=== PATIENT | female | born 1935 | race African-American/Black ===

== ENCOUNTER 2018-12-18 15:25 | Inpatient (IN) ==
[2018-12-18] MEDS ORDERED: LASIX IV ONE ×2 (16:45→19:26)
[2018-12-18 18:09] LABS: ALLEN TEST YES; BE 1.3 mmoll (-3.0-3.0); BLOOD TYPE ARTERIAL; HCO3-(ACT) 25.8 mmoll (20.0-26.0); METHB 0.6 % (0.0-1.5); MODALITY ROOM AIR; O2(CT) 15.9 mL/dL (15.0-23.0); PCO2(98.6) 35 mmHg (35-45); PO2(98.6) 67 mmHg (60-100); SAMPLE BLOOD; SAO2 95.7 % (95.0-100.0); THB 12.1 g/dL (11.5-17.4); pH(98.6) 7.46 (7.35-7.45)
[2018-12-18 18:26] LABS: BASO# 0.02 X1000 (0.0-0.2); BASO% 0.4 % (0.0-0.8); EOS# 0.11 X1000 (0.0-0.7); HEMATOCRIT 36.9 % (37.0-47.0); HEMOGLOBIN 12.3 g/dL (12.0-16.0); LYMPH# 1.25 X1000 (1.2-3.4); LYMPH% 22.3 % (20.5-51.1); MCHC 33.3 g/dL (33-37); MCV 92.9 FL (81-99); MONO# 0.59 X1000 (0.11-0.59); MONO% 10.5 % (1.7-9.3); NEUT# 3.64 X1000 (1.4-6.5); NEUT% 64.8 % (42.2-75.2); PLT 204 X1000 (130-400); RBC 3.97 XMIL (4.2-5.4); RDW 14.7 % (11.5-14.5); WBC 5.61 X1000 (4.8-10.8)
--- NOTE | 2018-12-18 18:50 | Diag Imaging Result Doc PS360 ---
CHEST-2 VIEWS - 12/18/2018 INDICATION: SOB COMPARISON: 10/03/2017 FINDINGS: There is significant cardiomegaly. There is central pulmonary vascular congestion. No definite edema. There is some linear atelectasis or scarring in the left upper lobe. No pleural effusion. IMPRESSION: Cardiomegaly and pulmonary vascular congestion. Persistent linear atelectasis in the left upper lobe. Electronically signed by Bob Figueroa 12/18/2018 6:48 PM
[2018-12-18 19:08] LABS: ALB/GLOB RATIO 0.9; ALBUMIN 3.4 g/dL (3.5-5.0); CALCIUM 10.6 mg/dL (8.8-10.2); CREATININE 1.3 mg/dL (0.5-0.9); POTASSIUM 4.1 mmol/L (3.5-5.1); TOTAL BILIRUBIN 0.56 mg/dL (0.20-1.00); TOTAL PROTEIN 7.2 g/dL (6.3-8.3)
[2018-12-18] MEDS ORDERED: ULTRAM PO PRN (19:25)
--- NOTE | 2018-12-18 22:40 | HISTORY AND PHYSICAL ---
SUBJECTIVE: Dyspnea on exertion, PND, orthopnea, cardiac asthma, swelling of feet. HISTORY OF PRESENT ILLNESS: She is an 83-year-old female who was evaluated in my office last week, basically with the above symptoms. The patient has significant systolic murmur in the aortic area and mitral area. Chest x-ray showed cardiomegaly. She has an elevated JVD. Send an echo and started on Dyazide. Obviously patient fails to follow up and came in my office today with worsening of symptoms. The echocardiography showed mild concentric LV hypertrophy, LV function 60%, severe enlargement of left atrial cavity around 62. She has moderate eccentric mitral regurgitation. Estimated regurgitant orifice 0.25. She also has mild aortic stenosis with mild aortic insufficiency. Estimated aortic valve area 1.8 square cm. Severe pulmonary hypertension with estimated pressure 90 mm. In my office today, she has elevated JVD and some wheezing noted. She also complains of left leg pain and changing the color on the left 3rd toe. Pulses are palpable. I spoke to the family at bedside. The patient has been admitted to the hospital with congestive heart failure and needs evaluation of these 2 murmurs with severe pulmonary hypertension. Dr. Maynard has been consulted. We will discuss with him. In the meantime, we will give IV Lasix and followup. PAST MEDICAL HISTORY: Type 2 diabetes, hypertension, obesity, osteoporosis, paroxysmal atrial fibrillation, acid reflux disease, rheumatoid arthritis, lumbar spinal stenosis, vitamin D deficiency. PAST SURGICAL HISTORY: Right cataract surgery, bilateral knee replacement, L-spine surgery, history of Thakkar's palsy, colonoscopy 2015 was negative. L3-L4 laminectomy, bilateral olecranon nodule removal by Dr. Schulte in 2013. MEDICINES: In my office, aspirin, amiodarone 200 daily 8, atenolol 50 daily, Dyazide 1 tablet daily, Eliquis 5 mg p.o. b.i.d., Nexium 40 mg daily, Plaquenil 200 mg daily, lisinopril 10 daily, Protonix 40 daily, vitamin D 50,000 units once a week, Zanaflex 4 mg at bedtime. ALLERGIES: Sulfa and guaifenesin. SOCIAL HISTORY: She is , 9 children, 8 living. No smoking. No alcohol. No drug abuse. FAMILY HISTORY: Father at the age of 70 from heart attack. Mom at 89 from stroke. HEALTH MAINTENANCE: Flu vaccine 2018, pneumococcal vaccine 09/20/2017. Mammography April 2018. Last physical April 2018, colonoscopy July 2014. Eye exam Dr. Conteh. REVIEW OF SYSTEMS: HEENT: No headache and no vision problem. No earache. No sore throat. Neck: No goiter. No lymphadenopathy. No bruit. Cardiopulmonary: No chest pain, shortness of breath, cough and wheezing. GI: No nausea, vomiting, abdominal pain. : No history of hesitancy, dysuria, frequency, swelling of legs, chronic back pain. Arthritic changes from rheumatoid under the care of Dr. Paula. Neurologic: No focal symptoms or weakness. Extremities: Left leg pain and discoloration on the 3rd toe. PHYSICAL EXAMINATION: Is 98.4 degrees 1, pulse is 54, blood pressure 160/68, 97% on room air, 4 feet 2, 184 pounds. HEENT: Atraumatic, normocephalic. Pupils equal, reactive to light. Cataracts present on the left side. TMs are normal and JVD is elevated. CHEST: Is wheezing. HEART: Distant heart sounds. Systolic murmur in the aortic area as well as in the mitral area. Exam is suboptimal because of huge breasts. ABDOMEN: Belly is soft, obese, nontender. EXTREMITIES: 1+ pedal edema. Pulses are palpable. Third toe slightly discolored. NEUROLOGIC: No obvious focal deficits. INVESTIGATIONS: CBC: White cell count 5.6, hematocrit 36.9, platelets 204,000. ABG: pH is 7.46, pCO2 35, PO2 67 on room air. SMA-7. BUN 30, creatinine 1.3, calcium 10.6, proBNP 4000. Chest x-ray: Cardiomegaly increased pulmonary vasculature, scarring in the left upper lobe. ASSESSMENT AND PLAN: 1. An 83-year-old female admitted to the hospital with diastolic heart failure with underlying aortic stenosis and moderate severe mitral regurgitation associated with pulmonary hypertension and needs a probably VEL, further opinion and will get an EKG and Dr. Maynard consult in the morning. 2. PAF on Cordarone 200 mg daily along with Eliquis 5 mg p.o. b.i.d. 3. We will give IV Lasix 1 time daily. Secondary pulmonary hypertension and also check the D- dimer. We will also get a CT pulmonary angiogram if is positive. 4. Left leg pain discoloration of 3rd toe. Check the ankle brachial index. 5. Rheumatoid arthritis on Plaquenil. 6. Acid reflux disease on Prilosec. 7. Chronic back pain and tramadol and Zanaflex and reconcile home medications. 8. No need for deep vein thrombosis prophylaxis since patient is on Eliquis and we will follow up on the pending labs. cc: Marcos Kendrick MD
[2018-12-18] MEDS: NEURONTIN PO SCH (23:24)
[2018-12-18] MEDS: ELIQUIS PO SCH (23:24)
[2018-12-18] MEDS: ZANAFLEX PO SCH (23:24)
--- NOTE | 2018-12-19 07:11 | EKG Report ---
Test Performed on : 12/19/2018 06:53:05 AM Test Reason : cp Blood Pressure : / mmHG Vent. Rate : 046 BPM Atrial Rate : 046 BPM P-R Int : 214 ms QRS Dur : 116 ms QT Int : 568 ms P-R-T Axes : 063 -34 012 degrees QTc Int : 497 ms Sinus bradycardia. with 1st degree AV block. Left axis deviation Incomplete left bundle branch block Prolonged QT Abnormal ECG When compared with ECG of 07-JAN-2011 08:27, premature ventricular complexes. are no longer present Incomplete left bundle branch block is now present QT has lengthened Confirmed by Dante AARON, Andrew Aguirre ([id number]) on 12/19/2018 10:02:06 AM
[2018-12-19] MEDS: DYAZIDE PO SCH (08:41)
[2018-12-19] MEDS: PRINIVIL PO SCH (08:41)
[2018-12-19] MEDS: PLAQUENIL PO SCH (08:41)
[2018-12-19] MEDS: ELIQUIS PO SCH (08:41)
[2018-12-19] MEDS: CENTRUM SILVER PO SCH (08:41)
[2018-12-19] MEDS: PRILOSEC PO SCH (08:42)
[2018-12-19] MEDS: CORDARONE PO SCH (08:42)
[2018-12-19] MEDS: LASIX IV SCH (08:42)
[2018-12-19] MEDS ORDERED: TENORMIN PO SCH (09:00)
--- NOTE | 2018-12-19 09:11 | PROGRESS NOTE ---
DATE: 12/19/2018 SUBJECTIVE: The patient is a little better. Wheezing. IV Lasix was given. Left leg pain is better. Doppler was done. Waiting for AMARILIS. OBJECTIVE: Vital Signs: Temperature is 98 degrees, pulse 70, and blood pressure is stable. HEENT: Within normal limits. Lungs: Scattered wheezing. Heart: Sounds are very distant with systolic murmur noted and huge breasts. Suboptimal exam. No peripheral edema. LABORATORY: EKG sinus bradycardia. Nothing acute. Creatinine 1.3. ProBNP 4000. ASSESSMENT AND PLAN: 1. Shortness of breath due to diastolic dysfunction due to mild aortic stenosis and moderate MR with severe pulmonary hypertension. 2. Check the D-dimer and PAF in sinus on Cordarone and Eliquis. 3. Chronic pain in the legs on Neurontin. 4. Rheumatoid arthritis on Plaquenil. Cardiology consult for further opinion based on that. Further recommendations will be followed with family on the long run and living will was discussed. LEVEL OF DOCUMENTATION: 25 minutes. cc: Marcos Kendrick MD
--- NOTE | 2018-12-19 11:52 | CARDIOLOGY CONSULTATION ---
DATE: 12/19/2018 Cardiology was consulted for cardiac evaluation, transesophageal echocardiogram, given severe pulmonary arterial hypertension, mitral regurgitation, and aortic stenosis. An 83-year-old lady was evaluated by Dr. Kendrick in the office. As far as symptoms are concerned, she comes with complaints of having increasing shortness of breath. Denies chest pain. Exercise capacity is limited. There is no orthopnea. Her echocardiogram in the past revealed aortic stenosis with moderate eccentric mitral regurgitation and severe pulmonary arterial hypertension with a pressure of 90 mmHg. The aortic valve area was 1.8 cm2. She also has history of heart failure. There is no history of palpitations at the present time. There is no dizziness or syncope. PAST MEDICAL HISTORY: 1. Aortic stenosis. 2. By recent echocardiogram, moderate mitral regurgitation, severe pulmonary arterial hypertension. 3. Hypertension. 4. History of heart failure. 5. Hypothyroidism. 6. Paroxysmal atrial fibrillation, currently on amiodarone and in sinus rhythm. 7. Anticoagulation therapy. 8. Rheumatoid arthritis. 9. Lumbar spinal stenosis. 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 PAST SURGICAL HISTORY: Include: 1. Right cataract surgery. 2. Bilateral knee replacement. 3. Left spine surgery, . 4. Colonoscopy 2014 was negative. 5. L3-L4 laminectomy in the past. 6. Bilateral olecranon nodule surgery, 2013. HOME MEDICATIONS: Include amiodarone 200 mg a day. Atenolol 50 mg a day. Dyazide 1 tablet a day. Eliquis 5 mg p.o. b.i.d. Nexium. Plaquenil 200 mg a day. Lisinopril 10. Protonix 40. Multivitamins. Vitamin D. Zanaflex. ALLERGIES: Allergic to sulfonamides and guaifenesin. She is . Nine children, 8 living. HEALTH MAINTENANCE: Flu vaccine, 2018. Pneumococcal vaccine 09/20/2017. Mammogram 2018. REVIEW OF SYSTEMS: Gastrointestinal System: there is no history of nausea, vomiting, or diarrhea. There is no history of hematemesis or melena. Central nervous system: No focal weakness to suggest a CVA or TIA. Genitourinary System: There is no dysuria or hematuria. PHYSICAL EXAMINATION: Blood pressure when she was admitted was 160/68, currently blood pressure 142/52 jugular venous pressure was normal. First and second heart sounds were heard. There was ejection systolic murmur and pansystolic murmur as well. Respiratory System: A few scattered inspiratory wheezes. Abdomen was soft, nontender. There was no guarding or rigidity. Bowel sounds were heard. Central Nervous System: Alert and oriented. Was moving all 4 extremities. Examination of extremities revealed trace edema. DATA: Electrocardiogram revealed sinus bradycardia, heart rate of 46 beats per minute. ASSESSMENT AND PLAN: 1. Ms. Alia Longoria 83-year-old, lady who has paroxysmal atrial fibrillation, now in sinus rhythm; hypertension, blood pressures have been under control; has aortic stenosis which is mild by echocardiogram associated with moderate eccentric mitral regurgitation and severe pulmonary arterial hypertension. She is admitted with increasing shortness of breath and has had paroxysmal nocturnal dyspnea as well. She was given diuretics; since then, she has improved. Given her symptoms and valvular problems as listed above, we will plan for: 1) An echocardiogram to reassess cardiac and valvular function. Today her last ejection fraction was normal. 2) We will plan for a transesophageal echocardiogram in the morning to evaluate the aortic stenosis as well as the extent of the mitral regurgitation. 2. Hypertension. Blood pressures are under control. She was significantly bradycardic. I will decrease the atenolol to 25 mg a day. 3. Paroxysmal atrial fibrillation. She is on amiodarone 200 mg a day. She is in sinus rhythm. I have not made any changes. Anticoagulation therapy for stroke prophylaxis, she is on Eliquis. We will hold the Eliquis prior to procedure and restart after procedure. 4. She has rheumatoid arthritis and is on Plaquenil. I have not made any changes. I had a detailed discussion with the patient and her daughter. She would need to undergo right and left heart cardiac catheterization following a transesophageal echocardiogram. Patient is willing to undergo the procedures as well. We will make further recommendations after transesophageal echocardiogram. Thank you for the consult. We will follow hospital course. cc: MD Marcos Dixon MD MTDD
--- NOTE | 2018-12-19 15:21 | VASCULAR LAB ---
PROCEDURE NAME: Arterial Bilateral Legs - 12/18/2018 REQUESTING PHYSICIAN: Dr. Kendrick. [employer] PROGRAM DIRECTOR: Deanna. INDICATIONS: Peripheral vascular disease. SUMMARY: Segmental pressures are as follows: Right brachial 191, left 188; right proximal thigh 226, left 250; right distal thigh 217, left 223; right popliteal 220, left 215; right dorsalis pedis 179, left 198; right posterior tibial 191, left 184; right great toe 131, left 141; right AMARILIS 1.00, left 1.04; right TBI 0.69, left 0.74. Waveform analysis: Waveforms appear to be intact to the level of the toes bilaterally. INTERPRETATION: Likely [id number] distal peripheral small vessel disease to bilateral legs with the right being slightly worse than the left. The patient may benefit from CT angiography to delineate the anatomy better. cc: MD Marcos Tate MD
--- NOTE | 2018-12-19 16:51 | ECHO REPORT ---
ORDER DATE: 12/19/2018 INDICATION: Mitral regurgitation. Pulmonary hypertension. FINDINGS: 1. The right atrium appears normal in size. 2. Moderate tricuspid regurgitation. RV systolic pressure of 77 mmHg suggesting pulmonary hypertension. 3. Normal RV size and systolic function. 4. Mild pulmonic insufficiency. 5. Mild left atrial enlargement at 4.2 cm. 6. There is no mitral valve prolapse. There is moderate and possibly severe mitral regurgitation. This is a very eccentric jet. 7. Normal LV size, end-diastolic dimension of 4.7. Mild left ventricular hypertrophy with posterior and interventricular septal wall thickness of 1.2 cm each. Normal LV systolic function. The estimated EF is 60% to 65% with normal wall motion. 8. The aortic valve opens well. There is trace insufficiency no evidence of stenosis. 9. The aorta appears normal in visualized segments. 10. No pericardial effusion identified. cc: MD Layla Bauman PA Jagan Reddy, MD
[2018-12-19 19:21] LABS: URINE SOURCE CLEAN CATCH
[2018-12-19 19:28] LABS: BILIRUBIN URINE NEGATIVE (NEGATIVE); BLOOD URINE NEGATIVE (NEGATIVE); COLOR YELLOW; GLUCOSE URINE NEGATIVE (NEGATIVE); KETONE URINE NEGATIVE (NEGATIVE); LEUKOCYTES URINE NEGATIVE (NEGATIVE); NITRITE URINE NEGATIVE (NEGATIVE); PH URINE 6.5; PROTEIN URINE NEGATIVE (NEGATIVE); TURBIDITY URINE CLEAR (CLEAR); UROBILINOGEN URINE 2 mg/dL (NORMAL)
[2018-12-19 19:29] LABS: UR EPITHELIAL CELLS <10 /HPF (<10); URINE BACTERIA NEGATIVE /HPF; URINE RBC <10 /HPF (<10); URINE WBC <10 /HPF (<10)
[2018-12-19] MEDS: NEURONTIN PO SCH (20:33)
[2018-12-19] MEDS: ZANAFLEX PO SCH (20:33)
[2018-12-20 07:47] LABS: CALCIUM 10.1 mg/dL (8.8-10.2); CREATININE 1.2 mg/dL (0.5-0.9); MAGNESIUM 2.1 mg/dL (1.5-2.7); POTASSIUM 3.4 mmol/L (3.5-5.1)
[2018-12-20] MEDS ORDERED: TENORMIN PO SCH (09:00)
[2018-12-20] MEDS: PLAQUENIL PO SCH (09:01)
[2018-12-20] MEDS: CENTRUM SILVER PO SCH (09:01)
[2018-12-20] MEDS: LASIX IV SCH (09:01)
[2018-12-20] MEDS: PRILOSEC PO SCH (09:01)
[2018-12-20] MEDS: DYAZIDE PO SCH (09:01)
[2018-12-20] MEDS: CORDARONE PO SCH (09:01)
[2018-12-20] MEDS: PRINIVIL PO SCH (09:01)
[2018-12-20] MEDS ORDERED: DIPRIVAN 1% ONE (11:36)
[2018-12-20] MEDS ORDERED: XYLOCAINE-MPF 2% ONE (11:36)
[2018-12-20] MEDS ORDERED: SODIUM CHLORIDE 0.9% 10 ML ONE (11:48)
[2018-12-20] MEDS ORDERED: XYLOCAINE 2% VISCOUS ONE (11:48)
[2018-12-20] MEDS ORDERED: NS 1,000 ML ONE (12:06)
[2018-12-20] MEDS ORDERED: ANESTHESIA PB SET 88 IN 5742 ONE (12:06)
[2018-12-20] MEDS ORDERED: CLAVE TWINSITE 32 IN 11959 ONE (12:06)
[2018-12-20] MEDS ORDERED: EPHEDRINE ONE (12:52)
--- NOTE | 2018-12-20 13:27 | ECHO REPORT ---
ORDER DATE: 12/20/2018 PROCEDURE PERFORMED: Transesophageal echocardiogram to assess mitral regurgitation. DESCRIPTION OF PROCEDURE: Informed consent was obtained from the patient. Patient was brought to the cardiac catheterization laboratory. Cetacaine spray was used to anesthetize the oropharynx. Propofol was given intravenously to sedate the patient. Please see detailed anesthesia records. A transesophageal probe was easily passed into the esophagus. Ultrasound pictures were obtained. FINDINGS: 1. Normal left ventricular cavity size. Mild left ventricular hypertrophy. Estimated ejection fraction of 60%. 2. Aortic valve leaflets were mildly sclerosed, trileaflet. The aortic valve area by planimetry was 1.5 square cm. 3. Mitral valve leaflets were mildly thickened. There is mitral annular calcification. 4. Tricuspid valve was normal. 5. Pulmonic valve was normal. 6. Left atrium was mildly enlarged. Left atrial appendage was normal. Right atrium was normal. 7. Ascending aorta was normal. 8. Descending aorta had layered plaque. 9. Doppler studies revealed moderate tricuspid regurgitation with pulmonary artery systolic pressure of 61 mmHg. 10. There is mild pulmonary regurgitation. 11. There is mild restriction of the aortic valve leaflet motion with an aortic valve area of 1.5 square cm associated with mild eccentric aortic regurgitation. 12. There is severe mitral regurgitation. 13. There is no pericardial effusion. There is no obvious intracardiac mass or thrombus seen. cc: MD Layla Dixon PA Jagan Reddy, MD
[2018-12-20] MEDS ORDERED: LOVENOX SUBQ SCH (18:00)
[2018-12-20] MEDS ORDERED: KLOR-CON PO ONE (19:18)
--- NOTE | 2018-12-20 19:56 | PROGRESS NOTE ---
DATE: 12/20/2018 SUBJECTIVE: Patient is a lot better and waiting to undergo transesophageal echocardiogram. OBJECTIVE: Vital Signs: On exam, temperature is 97 degrees, pulse 49, blood pressure 123/51. HEENT: Exam within normal limits. Chest: Clear. Decreased wheezing. Heart: Sounds are regular. Abdomen: Belly is soft, obese, nontender. Extremities: Decreased edema. ASSESSMENT AND PLAN: 1. Diastolic heart failure with severe pulmonary hypertension. 2. Severe mitral regurgitation. 3. Left leg pain is improving. Followup studies as follows: AMARILIS right side 1.0, left side is 1.0, right TBI 0.69, left side is 0.74. Small vessel disease due to calcifications, and Dr. Maynard's consult appreciated. Patient was decreased with Tenormin 25 daily, intravenous Lasix, and hypokalemia. Replace the potassium. Then also, we discussed about the left heart catheterization based on the further recommendations. Will be followed. LEVEL OF DOCUMENTATION: 25 minutes. cc: Marcos Kendrick MD
[2018-12-20] MEDS: ZANAFLEX PO SCH (22:33)
[2018-12-20] MEDS: NEURONTIN PO SCH (22:33)
[2018-12-21 08:00] VITALS: BP 123/52
[2018-12-21] MEDS ORDERED: KLOR-CON PO ONE (09:42)
--- NOTE | 2018-12-23 19:49 | DISCHARGE SUMMARY ---
ADMISSION DATE: 12/18/2018 DISCHARGE DATE: 12/21/2018 DISCHARGING DIAGNOSES: Diastolic congestive heart failure due to severe mitral regurgitation and mild aortic stenosis with severe pulmonary hypertension. SECONDARY DIAGNOSES: 1. Type 2 diabetes. 2. Metabolic syndrome. 3. Hypertension. 4. Obesity. 5. Osteoporosis. 6. Paroxysmal atrial fibrillation. 7. Acid reflux disease, 8. Rheumatoid arthritis. 9. Lumbar spinal stenosis. 10. Vitamin D deficiency. CONSULTATIONS: Dr. Maynard. PROCEDURES: Arterial flow studies for left leg pain. AMARILIS on the right side 1.0, left side is 1.0. TBI 0.69 on the right, left side is 0.74. Transesophageal echocardiography report: 1. Normal left ventricular cavity size. EF is 60%. Aortic leaflet sclerosed trileaflet. 2. Estimated aortic valve area 1.5 square centimeters. 3. Mild mitral annular calcification. 4. Left atrium was mildly enlarged. 5. Severe pulmonary hypertension 61. 6. Mild aortic regurgitation. 7. Severe MR noted. BRIEF HISTORY: Please see the H and P that was done on 12/18/2018. In brief, she is an 83-year- old female admitted to the hospital with cardiac asthma, wheezing, shortness of breath, PND, orthopnea, and swelling of feet. She was on Dyazide. She has also history of PAF. She complains of left leg pain. HOSPITAL COURSE: She has elevated proBNP and further studies reveal severe MR, enlargement of left atrial cavity. The patient was transferred to [facility] for right and left heart cath. In the meantime, Dr. Maynard recommended to cut down the metoprolol since she is bradycardic. Paroxysmal atrial fibrillation on Cordarone 200 daily along with Eliquis 5 mg p.o. b.i.d. Symptoms are improved with IV Lasix. She also has secondary pulmonary hypertension. Upon further workup, D-dimer was negative. She is already on Eliquis and is low likelihood for having pulmonary embolism. She is complaining of left leg pain and discoloration of 3rd toe for which arterial flow studies were done, and at this time there was no significant PAD noted. Chronic rheumatoid arthritis on Plaquenil. Acid reflux disease on Prilosec. The patient was discharged to [facility] for right and left heart cath. Symptoms are much improved. LABORATORIES: CBC: White cell count 5.6, hematocrit 36, platelets 204,000. ABG on room air: pH is 7.46, pCO2 of 35, pO2 of 67. SMA 7: Sodium 142, potassium 4.1, BUN 32, creatinine 1.2, calcium 10.1, magnesium 2.1. Cardiac enzymes were negative. ProBNP 3000. STUDIES: Chest x-ray: Marked cardiomegaly. DISCHARGING INSTRUCTIONS: Cordarone 200 daily, Eliquis 5 mg p.o. b.i.d., gabapentin 300 daily, Plaquenil 200 daily, lisinopril 10 daily, multivitamin 1 tablet daily, Prilosec 20 daily, tramadol 50 t.i.d. as needed, Lasix 40 mg daily, atenolol 25 daily, Zanaflex 4 mg at bedtime. FOLLOWUP: Follow up from the [facility] after right and left heart cath. She also needs surveillance for Cordarone with liver function test, thyroid function test, and chest x-ray every 6 months. cc: MD Martin Amato MD
== END 2018-12-21 09:46 | disposition short-term general hospital (02) | DRG 292 ==
LOC: DIRADM → OBSVTOIN 15:25 → 3N 15:54
PROVIDERS: ADMIT Internal Medicine; ATTEND Internal Medicine
CPT/HCPCS: 71020; 71046; 80048; 80053; 81001; 82805; 83735; 83880; 84484; 85025; 93005; 93010; 93306; 93312; 93923; A9270; J1650; J1940; J7030

== ENCOUNTER 2019-03-11 11:00 | Inpatient (IN) ==
[2019-03-11] MEDS ORDERED: XYLOCAINE-MPF 1% INJ ONE (11:41)
--- NOTE | 2019-03-11 11:49 | PROVIDER DOCUMENTATION ---
HPI-General Adult - General Chief Complaint: Fall Stated Complaint: FALL Time Seen by Provider: 03/11/19 11:25 Source: patient Allergies/Adverse Reactions: Patient Allergies Allergy/AdvReac Type Severity Reaction Status Date / Time codeine Allergy ITCHING Verified 03/11/19 12:02 povidone-iodine Allergy ITCHING Verified 03/11/19 12:02 [From Betadine] soap [From Betadine] Allergy ITCHING Verified 03/11/19 12:02 Sulfa (Sulfonamide Allergy ITCHING Verified 03/11/19 12:02 Antibiotics) adhesive tape AdvReac "pulls Verified 03/11/19 12:02 skin" if left on too long Home Medications: Home Medication List Medication Instructions Recorded Confirmed Last Taken Type Amiodarone [Cordarone] 200 mg PO DAILY 09/28/17 03/11/19 03/11/19 History Apixaban [Eliquis] 5 mg PO BID 09/28/17 03/11/19 03/11/19 History Gabapentin 300 mg PO HS 09/28/17 03/11/19 03/10/19 History Hydroxychloroquine Sulfate 200 mg PO DAILY 09/28/17 03/11/19 03/11/19 History Lisinopril 10 mg PO DAILY 09/28/17 03/11/19 03/11/19 History Tizanidine HCl [Zanaflex] 4 mg PO HS 09/28/17 03/11/19 03/10/19 History Atenolol 25 mg PO DAILY 12/18/18 03/11/19 03/11/19 History Potassium Chloride 2 tab PO DAILY 03/11/19 03/11/19 03/11/19 History Torsemide [Demadex] 1 tab PO BID 03/11/19 03/11/19 03/11/19 History - History of Present Illness -Gen Adult Nature of Presenting Problems: Pt. is 84 yof that presents with c/o a fall this morning and hitting her head. Pt. denies any LOC and states she is on blood thinners. Pt. reports her right foot gave out and she fell. Pt. reports a knot on her head and states her right lower leg hurts. She also reports a cut to the left lower leg. She denies any other complaints. Location of Pain/Injury: reports: head, lower extremity (Bilaterally). denies: none, face, mouth, neck, chest, upper extremity, hand(s), abdomen, back, pelvis, genitalia, feet, upper body, lower body, generalized, other Pain Radiation: reports: no radiation. denies: arm(s), back, buttocks, chest, epigastric, feet, groin, jaw, flank (L), legs (lower), LLQ, LUQ, neck, periumbilical, flank (R), RLQ, RUQ, shoulder(s), scapula, scrotal, sternal notch, suprapubic, legs (upper), urethral, vaginal, other Quality of Pain: reports: aching. denies: burning, pressure, throbbing Severity: reports: moderate. denies: mild, severe Onset/Duration: reports: abrupt, just prior to arrival Timing: reports: still present. denies: improving, intermittent, getting worse Context/Activities at Onset: reports: light activity, recent trauma history. denies: none, moderate activity, vigorous activity, recent emotional stress, recent physical stress, possible bad food, cold exposure, eating, out of country travel, rest, sleep, sexual activity, other Modifying Factors: improves with: immobilization. worse with: movement Associated Symptoms: reports: headaches, other (Lower extremity pain). denies: denies symptoms, anxiety, arm pain, back/neck pain, chest pain, constipation, cough, diaphoresis, diarrhea, dizziness, EENT symptoms, fatigue, fever/chills, genitourinary problems, heartburn, joint pain, loss of appetite, malaise, muscle aches, sinus congestion/drainage, nausea, rash, seizure, shortness of breath, sensory/motor loss, pain with inspiration, swelling/mass in abdomen, syncope, vomiting, weakness, trouble walking Similar Symptoms Previously?: No Recently seen or treated by another doctor?: No Review of Systems - Adult - REVIEW OF SYSTEMS - ADULT Constitutional: reports: no symptoms reported Eyes: reports: no symptoms reported Ears, Nose, Mouth & Throat: reports: no symptoms reported Cardiovascular: reports: no symptoms reported Respiratory: reports: no symptoms reported Gastrointestinal: reports: no symptoms reported Genitourinary: reports: no symptoms reported Musculoskeletal: reports: see HPI, joint pain (Right foot pain). denies: back pain, muscle aches, neck pain Integumentary: reports: see HPI, skin sores/ulcer (There is a previous hematoma to the left lower extremity that burst open when she fell today. It is large and there are large clots coming out of it. There is a foul odor to it also.), other (There is a 5 cm flap laceration to the left lower extremity.). denies: hair loss, itching, rash Neurological: reports: see HPI, headache/migraines. denies: numbness, seizure, tremors Psychiatric: reports: no symptoms reported Past History - Adult - PAST MEDICAL HISTORY-ADULT Review of Records: reports: Old Records Reviewed, Nursing Assessment Review, Medications Reviewed, Social history reviewed & non-contributory. Major Childhood Illnesses: reports: denies history Cardiovascular: reports: A-Fib, CAD, HTN Respiratory: reports: denies history Gastrointestinal: reports: denies history Obstetrical/Gynecological: reports: denies history Genitourinary: reports: denies history Musculoskeletal: reports: arthritis (RA) Neurological: reports: denies history Endocrine/Immune: reports: denies history Other Conditions: reports: denies history - IMMUNIZATION STATUS Childhood Immunizations: See Nurse Assessment Flu Vaccine: See Nurse Assessment - FAMILY HISTORY Family History: reviewed, not pertinent - SOCIAL HISTORY Smoking: denies Physical Exam-General - PHYSICAL EXAM-ADULT Initial Vital Signs Reviewed: Yes - CONSTITUTIONAL General Appearance: appears well, alert, no apparent distress. negative: anxious, obtunded, combative - EYES Eyes: PERRL/EOMI, pink conjunctivae - HEAD, EARS, NOSE, MOUTH & THROAT HENMT: moist mucous membranes. negative: angioedema, frontal tenderness, maxillary tenderness - NECK Neck: non-tender, full range of motion, supple, normal inspection - RESPIRATORY Respiratory: lungs clear, normal breath sounds - CARDIOVASCULAR Cardiovascular: normal peripheral pulses, regular rate, rhythm, no edema - GASTROINTESTINAL (ABDOMEN) Abdominal Exam: normal bowel sounds, non tender, soft - LYMPHATIC Lymphatic: no adenopathy - MUSCULOSKELETAL Back Exam: normal inspection. negative: no CVA tenderness, no vertebral tenderness Extremity: normal range of motion, tenderness (Right foot). negative: deformity, erythema, inflammation, swelling Peripheral Pulses: radial (R): 2+, radial (L): 2+ - SKIN Integumentary: abrasion(s) (There is an abrasion to the right forehead with underlying hematoma.), ecchymosis (There is a previous hematoma to the left lower extremity that burst open when she fell today. It is large and there are large clots coming out of it. There is a foul odor to it also.), laceration(s) (There is a 5 cm flap laceration to the left lower extremity.). negative: cyanosis, jaundice, pallor, swelling, warm - NEUROLOGIC Neurologic: grossly normal, no motor/sensory deficits. negative: aphasia, motor weakness, sensory deficit - PSYCHIATRIC Psych/Mental Status: normal mood/affect, normal thought content, normal thought process, oriented x 3. negative: anxious, paranoid, tearful Progress - PLAN OF CARE/RESULTS Progress/Plan/Lab Results: Vital Signs - 8 hr 03/11/19 11:19 Temperature 98.5 F Pulse Rate 51 L Respiratory Rate 16 Blood Pressure 105/74 O2 Sat by Pulse Oximetry 100 Orders Category Date Time Status Saline Loc NOW Care 03/11/19 11:40 Ordered lac [Laceration Set up] DIRECTED Care 03/11/19 11:42 Ordered CHEST-1 VIEW [RAD] Stat Exams 03/11/19 11:[address] HEAD/C-SPINE W/O CONTRAST [CT] Stat Exams 03/11/19 11:41 Ordered FOOT COMPLETE RIGHT [RAD] Stat Exams 03/11/19 11:43 Ordered LOWER LEG-LEFT [RAD] Stat Exams 03/11/19 11:42 Ordered LOWER LEG-RIGHT [RAD] Stat Exams 03/11/19 11:42 Ordered CBC WITH ELECTRONIC DIFF [HEME] Stat Lab 03/11/19 11:40 Uncollected COMPREHENSIVE METABOLIC PANEL [CHEM] Stat Lab 03/11/19 11:40 Uncollected PROTIME WITH INR [COAG] Stat Lab 03/11/19 11:41 Uncollected PTT [COAG] Stat Lab 03/11/19 11:41 Uncollected Lidocaine 1% Pf [Xylocaine-Mpf 1%] Med 03/11/19 11:41 Once 10 ml INJ NOW ONE EKG [EKG] Stat Ther 03/11/19 11:40 Ordered Laboratory Tests 03/11/19 03/11/19 03/11/19 11:56 11:56 11:56 WBC 9.71 RBC 3.85 L Hgb 11.8 L Hct 35.5 L MCV 92.2 MCH 30.6 MCHC 33.2 RDW Std Deviation 14.4 Plt Count 275 MPV 10.4 Immature Gran % (Auto) 0.4 Neut % (Auto) 69.4 Lymph % (Auto) 16.8 L [place] % (Auto) 11.7 H Eos % (Auto) 1.5 Baso % (Auto) 0.2 Immature Gran # (Auto) 0.04 Neut # (Auto) 6.73 H Lymph # (Auto) 1.63 [place] # (Auto) 1.14 H Eos # (Auto) 0.15 Baso # (Auto) 0.02 PT 19.7 H INR 1.63 PTT (Actin FS) 32.9 Sodium 139 Potassium 3.3 L Chloride 95 L Carbon Dioxide 30 Anion Gap 14 BUN 76 H Creatinine 2.3 H Estimated GFR/1.73 m2 24 BUN/Creatinine Ratio 33 Glucose 176 H Calculated Osmolality 304 Calcium 10.7 H Total Bilirubin 0.73 AST 27 ALT 13 Alkaline Phosphatase 104 Total Protein 7.9 Albumin 3.4 L Globulin 4.5 Albumin/Globulin Ratio 0.8 Discussed results and plan of care with patient. Patient agrees with plan and verbalizes understanding. Result Diagrams: 03/11/19 11:56 03/11/19 11:56 - XRAY 1 XRAY: Right XRAY Study: Tibia/Fibula XRAY Interpretation: No Fx identified (Andrew) 2 XRAY: Left XRAY Study: Tibia/Fibula (No Fx identified with soft tissue edema. Air noted within the tissue.) XRAY Interpretation: See note (Andrew) 3 XRAY: Right XRAY Study: Foot XRAY Interpretation: NAD (Andrew) 4 XRAY Study: Chest XRAY Interpretation: No change from prior (Andrew) - CT/MRI 1 CT Study: Cervical Spine, Head ([facility] - [address] [address] [facility] - [address] [place] [address] Department of Imaging Patient: SARAH ROBERTSADM Date: 03/11/19MR#: [id number] : 1935[id number] Age/Sex: 84/FRoom/Bed: Loc: ED Ordering Physician: Caroline Morales Family Physician: Cricket Moran MD Reason for Procedure: Fall hit head on blood thinners ___ Signed EXAM: CT HEAD/C-SPINE W/O CONTRAST INDICATION: Fall hit head on blood thinners TECHNIQUE: This exam was performed using automated exposure control, adjustment of mA or kV according to patient size, and/or use of iterative reconstruction technique. COMPARISON: CT head dated 01/07/2011 FINDINGS: Head: There is appropriate diffuse brain atrophy. There is no definite acute infarct given the limited sensitivity of CT versus MRI. There is no discrete intracranial mass, mass effect, or intracranial hemorrhage. There is mild scalp edema anteriorly on the right. The calvaria is intact. C-spine: There is fairly extensive multilevel facet arthropathy as well as degenerative disc disease. Facet arthropathy is causing minimal anterolisthesis of C4 on C5. These degenerative changes are causing varying degrees of neuroforaminal narrowing. Otherwise, there is no discrete fracture, subluxation, or intrinsic osseous lesion. The thyroid is prominent and heterogeneous, statistically most likely representing multinodular goiter. Surrounding soft tissues are grossly unremarkable, otherwise. IMPRESSION: 1.No evidence of acute intracranial pathology. 2.Multilevel degenerative arthropathy but no evidence of fracture or other definite acute C-spine injury. Electronically signed by Aleksandr Gong 03/11/2019 12:27 PM 03/11/19 1227 Interpreting Physician: Aleksandr Gong MD Dictated Date/Time: 03/11/19 1220 cc: Caroline Morales; Cricket Moran MD) CT Results: See note - CONSULTS/PCP/HOSPITALIST Notification #1 *Consult/PCP/Hospitalist*: Dr. Sloan Time Discussed: 12:58 Reason/Comments: Consult Consult Disposition: F/U in office (Put a wet to dry dressing and have her follow up in office.) #2 Consult: Dhara for Dr. Howell Time Discussed: 14:36 Reason/Comments: Admission Consult Disposition: Will see in ED, Admit Procedures - LACERATION/WOUND REPAIR/FB Left Tibia Wound Location: Other: Left tibia Wound Length: 5 cm Wound's Depth, Shape: superficial, flap Wound Explored/Foreign Body: clean Irrigated with Saline?: Yes Prepped with: Hibiclens Anesthetic: 1%, Lidocaine/Xylocaine Volume of Anesthetic (ml's): 10 Wound Repaired with: Sutures Suture Size/Type: 4.0, Non-Absorbable, Nylon Number of Sutures: 12 Layer Closure?: No Sterile Dressing Applied?: Yes Splint Applied?: No Sling Applied?: No Post Procedure Neurovascular Exam: Intact Departure - Departure Date of Disposition Decision: 03/11/19 Time of Disposition Decision: 13:42 DIAGNOSIS: Hypokalemia, Laceration Acute kidney failure Qualifiers: Acute renal failure type: unspecified Qualified Code(s): N17.9 - Acute kidney failure, unspecified Fall Qualifiers: Encounter type: initial encounter Qualified Code(s): W19.XXXA - Unspecified fall, initial encounter Scalp hematoma Qualifiers: Encounter type: initial encounter Qualified Code(s): S00.03XA - Contusion of scalp, initial encounter Disposition: ADMITTED INPATIENT 09 Certified Medical Emergency: Emergent Condition: Stable Referrals and Follow-Ups: Cricket Moran MD [Primary Care Provider] - - Critical Care Note This patient required my direct & personal management of CC.: No Attestation - Physician/ JAY JAY Attestation Patient care was provided by Advanced Practice Provider:: Yes Advanced Practice Provider:: Caroline Morales Advanced Practice Provider documentation review:: The Mid-level provider documentation, treatment plan and medical decision making was reviewed by the physician who agrees with all treatment and medical decision making by the MLP. The physician spent face to face time with patient:: No Advanced Practice Provider documentation review:: Supervising physician onsite and consulted in the evaluation and care of this patient. The physician did not have a face to face encounter with the patient.
[2019-03-11 12:11] LABS: BASO# 0.02 X1000 (0.0-0.2); BASO% 0.2 % (0.0-0.8); EOS# 0.15 X1000 (0.0-0.7); EOS% 1.5 % (0.0-10.0); HEMATOCRIT 35.5 % (37.0-47.0); HEMOGLOBIN 11.8 g/dL (12.0-16.0); IMM GRAN# 0.04 X1000 (0.0-0.04); IMM GRAN% 0.4 % (0.0-0.5); LYMPH# 1.63 X1000 (1.2-3.4); LYMPH% 16.8 % (20.5-51.1); MCH 30.6 PG (27-31); MCHC 33.2 g/dL (33-37); MCV 92.2 FL (81-99); MONO# 1.14 X1000 (0.11-0.59); MONO% 11.7 % (1.7-9.3); MPV 10.4 FL (7.4-10.4); NEUT# 6.73 X1000 (1.4-6.5); NEUT% 69.4 % (42.2-75.2); PLT 275 X1000 (130-400); RBC 3.85 XMIL (4.2-5.4); RDW 14.4 % (11.5-14.5); WBC 9.71 X1000 (4.8-10.8)
--- NOTE | 2019-03-11 12:29 | Diag Imaging Result Doc PS360 ---
EXAM: CT HEAD/C-SPINE W/O CONTRAST INDICATION: Fall hit head on blood thinners TECHNIQUE: This exam was performed using automated exposure control, adjustment of mA or kV according to patient size, and/or use of iterative reconstruction technique. COMPARISON: CT head dated 01/07/2011 FINDINGS: Head: There is appropriate diffuse brain atrophy. There is no definite acute infarct given the limited sensitivity of CT versus MRI. There is no discrete intracranial mass, mass effect, or intracranial hemorrhage. There is mild scalp edema anteriorly on the right. The calvaria is intact. C-spine: There is fairly extensive multilevel facet arthropathy as well as degenerative disc disease. Facet arthropathy is causing minimal anterolisthesis of C4 on C5. These degenerative changes are causing varying degrees of neuroforaminal narrowing. Otherwise, there is no discrete fracture, subluxation, or intrinsic osseous lesion. The thyroid is prominent and heterogeneous, statistically most likely representing multinodular goiter. Surrounding soft tissues are grossly unremarkable, otherwise. IMPRESSION: 1.No evidence of acute intracranial pathology. 2.Multilevel degenerative arthropathy but no evidence of fracture or other definite acute C-spine injury. Electronically signed by Aleksandr Gong 03/11/2019 12:27 PM
[2019-03-11 12:39] LABS: ALB/GLOB RATIO 0.8; ALBUMIN 3.4 g/dL (3.5-5.0); CALCIUM 10.7 mg/dL (8.8-10.2); CREATININE 2.3 mg/dL (0.5-0.9); POTASSIUM 3.3 mmol/L (3.5-5.1); TOTAL BILIRUBIN 0.73 mg/dL (0.20-1.00); TOTAL PROTEIN 7.9 g/dL (6.3-8.3)
[2019-03-11 12:48] LABS: INR 1.63; PROTIME 19.7 Seconds (11.0-16.0)
[2019-03-11 12:49] LABS: PTT 32.9 Seconds (22.3-41.8)
--- NOTE | 2019-03-11 13:04 | Diag Imaging Result Doc PS360 ---
EXAM: CHEST-1 VIEW INDICATION: Fall TECHNIQUE: One view COMPARISON: 02/20/2019 FINDINGS: There is stable elevation of the right hemidiaphragm. The lungs are grossly clear. There is no discrete pleural fluid collection or pneumothorax. There is stable cardiomegaly. Central vasculature is unremarkable. IMPRESSION: Stable cardiomegaly. No definite acute pathology by plain radiograph. Electronically signed by Aleksandr Gong 03/11/2019 1:01 PM
--- NOTE | 2019-03-11 13:05 | Diag Imaging Result Doc PS360 ---
EXAM: LOWER LEG-LEFT INDICATION: Fall with injury TECHNIQUE: 2 views COMPARISON: 02/16/2019 FINDINGS: There has been a prior left knee arthroplasty. The bones are osteopenic. There is no discrete fracture, dislocation, or significant intrinsic osseous lesion, otherwise. There is soft tissue edema and subcutaneous gas at the anterior and lateral aspect of the lower leg suggesting laceration. IMPRESSION: Soft tissue injury but no definite acute osseous abnormality. Electronically signed by Aleksandr Gong 03/11/2019 1:03 PM
--- NOTE | 2019-03-11 13:06 | Diag Imaging Result Doc PS360 ---
EXAM: LOWER LEG-RIGHT INDICATION: fall with injury TECHNIQUE: 2 views COMPARISON: Right knee radiograph dated 02/20/2019 FINDINGS: There has been a prior right knee arthroplasty. The arthroplasty hardware is in stable position. The bones are osteopenic. There is no discrete fracture, dislocation, or significant intrinsic osseous lesion, otherwise. The surrounding soft tissues are essentially unremarkable. IMPRESSION: No evidence of acute osseous abnormality. Electronically signed by Aleksandr Gong 03/11/2019 1:04 PM
--- NOTE | 2019-03-11 13:08 | Diag Imaging Result Doc PS360 ---
EXAM: FOOT COMPLETE RIGHT INDICATION: Fall with injury TECHNIQUE: 3 views COMPARISON: None. FINDINGS: The bones are osteopenic. There is advanced degenerative arthropathy at the intertarsal joints, especially at the talonavicular joint. There are calcaneal bone spurs. There are milder degenerative changes at the great toe. There is no discrete fracture, dislocation, or significant intrinsic osseous lesion, otherwise. The surrounding soft tissues are essentially unremarkable. IMPRESSION: Advanced degenerative changes as described. No evidence of acute osseous abnormality by plain radiograph. Electronically signed by Aleksandr Gong 03/11/2019 1:06 PM
[2019-03-11] MEDS ORDERED: KLOR-CON PO ONE (13:41)
[2019-03-11] MEDS ORDERED: NS 1,000 ML IV ONE (13:41)
[2019-03-11 14:45] LABS: URINE SOURCE CLEAN CATCH
[2019-03-11 14:48] LABS: BILIRUBIN URINE NEGATIVE (NEGATIVE); BLOOD URINE NEGATIVE (NEGATIVE); COLOR YELLOW; GLUCOSE URINE NEGATIVE (NEGATIVE); KETONE URINE NEGATIVE (NEGATIVE); SP GRAVITY URINE 1.008; TURBIDITY URINE CLEAR (CLEAR); UR EPITHELIAL CELLS <10 /HPF (<10); URINE BACTERIA NEGATIVE /HPF; URINE RBC <10 /HPF (<10); URINE WBC <10 /HPF (<10)
[2019-03-11 14:49] LABS: LEUKOCYTES URINE NEGATIVE (NEGATIVE); NITRITE URINE NEGATIVE (NEGATIVE); PH URINE 6.5; PROTEIN URINE NEGATIVE (NEGATIVE); UROBILINOGEN URINE NORMAL (NORMAL)
[2019-03-11] MEDS ORDERED: ZOFRAN IV PRN (15:38)
--- NOTE | 2019-03-11 16:03 | HISTORY AND PHYSICAL ---
HISTORY OF PRESENT ILLNESS: This is an 84-year-old who I think Dr. Moran is her physician or Dr. Kendrick had seen her before. She has a history of paroxysmal atrial fibrillation. She has some mild regurgitation, severe pulmonary arterial hypertension. Has history of hypertension and history of rheumatoid arthritis for which she is on Plaquenil. She had a fall and hurt her ribs on the right side. She also had a laceration on her left leg with a hematoma. She presented with rib pain and with the hematoma. She had a small laceration on the left lower leg. The patient is on Eliquis. Noted that her creatinine had bumped up a little bit as well. There appeared to be a little bit intravascular volume depletion or prerenal. FAMILY HISTORY: By the report was noncontributory. No history of significant heart disease or pulmonary disease. I think her father at 70 of a heart attack. Mom at age 89 from stroke. SOCIAL HISTORY: Negative for alcohol or tobacco. Lives here in [place]. She is , 9 children, 8 living. No smoking. No alcohol. REVIEW OF SYSTEMS: She denies any weight gain or loss or fever or chills.HEENT: Unremarkable. No change in visual or hearing acuity. Respiratory: No increased work of breathing or dyspnea. Cardiovascular: No chest pain or tachy palpitation. PAST MEDICAL HISTORY: 1. Diabetes mellitus type 2. 2. Hypertension. 3. Obesity. 4. Osteoporosis. 5. Paroxysmal atrial fibrillation. 6. Gastroesophageal reflux. 7. Rheumatoid arthritis. 8. Lumbar spinal stenosis. 9. Vitamin D deficiency. 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 SURGICAL HISTORY: 1. Right cataract surgery. 2. Bilateral knee replacement. 3. L-spine surgery. 4. Colonoscopy in 2014 which was negative. 5. L3-L4 laminectomy. 6. Bilateral olecranon nodule removed per Dr. Schulte in 2013. ALLERGIES: Sulfa and guaifenesin. PHYSICAL EXAMINATION: VITAL SIGNS: Temperature 98.8 degrees, pulse 53, respirations 16, blood pressure 125/59. Weight 184. Height 5 feet 1 inch. HEENT: Pupils are equal and round. LUNGS: Clear in all lung prather anterolateral and posterior. She has tenderness around the right lateral and posterior ribs. CARDIOVASCULAR: Regular rhythm and rate without murmur or S3. ABDOMEN: Soft, nondistended. Positive bowel sounds. EXTREMITIES: Without clubbing, cyanosis, or edema. No skin rashes. NECK: Supple without adenopathy or thyromegaly. LABORATORY: White blood cell count 9,710, hematocrit 35, hemoglobin 11.8, platelet count 275,000. Sodium 139, potassium 3.3, chloride 95, BUN 76, creatinine 2.3, calcium is 10.7. AST 27, ALT 13, albumin 3.4. ProTime 19.7, PTT was 32. Urinalysis unremarkable. Her chest x-ray, stable cardiomegaly. No definite acute pathology appreciated. Foot x-ray: The right foot, advanced degenerative changes described. No evidence of acute osseous abnormality. Head and cervical spine CT: No evidence of acute intracranial pathology. Multilevel degenerative arthropathy. No evidence of fracture or no definite acute C-spine injury. ASSESSMENT AND PLAN: 1. Acute kidney injury. I suspect this is prerenal. We will give her some fluid. 2. She has a hematoma in the left leg that I think will resolve. I am going to hold I think the Eliquis for day or 2. 3. History of paroxysmal atrial fibrillation. She is on amiodarone 200 mg a day. She is on Eliquis 5 mg b.i.d. and atenolol 25 mg daily. 4. Hypertension. She is on lisinopril 10 mg daily and she takes torsemide 1 tablet b.i.d., which I am going to hold at this point. 5. Rheumatoid arthritis for which she is on hydroxychloroquine 200 mg daily. We will check her thyroid, B12, and folate and plan to admit her. cc: Andrew Howell MD
[2019-03-11] MEDS: NS 1,000 ML IV SCH (16:55)
[2019-03-11] MEDS: NEURONTIN PO SCH (20:43)
[2019-03-11] MEDS: ZANAFLEX PO SCH (20:43)
[2019-03-12] MEDS: NS 1,000 ML IV SCH (06:50)
[2019-03-12 07:15] LABS: WBC 6.91 X1000 (4.8-10.8)
[2019-03-12 07:16] LABS: BASO# 0.02 X1000 (0.0-0.2); BASO% 0.3 % (0.0-0.8); EOS# 0.16 X1000 (0.0-0.7); EOS% 2.3 % (0.0-10.0); HEMATOCRIT 30.9 % (37.0-47.0); IMM GRAN# 0.02 X1000 (0.0-0.04); IMM GRAN% 0.3 % (0.0-0.5); LYMPH# 1.62 X1000 (1.2-3.4); LYMPH% 23.4 % (20.5-51.1); MCH 30.4 PG (27-31); MCHC 32.4 g/dL (33-37); MCV 93.9 FL (81-99); MONO# 0.84 X1000 (0.11-0.59); MONO% 12.2 % (1.7-9.3); MPV 10.8 FL (7.4-10.4); NEUT# 4.25 X1000 (1.4-6.5); NEUT% 61.5 % (42.2-75.2); PLT 245 X1000 (130-400); RBC 3.29 XMIL (4.2-5.4); RDW 14.4 % (11.5-14.5)
[2019-03-12 07:26] LABS: CALCIUM 9.9 mg/dL (8.8-10.2); CREATININE 2.1 mg/dL (0.5-0.9)
[2019-03-12 07:43] LABS: TSH 0.3 uIUmL (0.27-4.20)
[2019-03-12 07:51] LABS: FREE T4 2.04 ng/dL (0.93-1.70)
--- NOTE | 2019-03-12 09:11 | PROGRESS NOTE ---
DATE: 03/12/2019 SUBJECTIVE: Ms. Longoria did not sleep a whole lot last night. She is eating breakfast. She says her rib pain is less, and comfortable this morning. OBJECTIVE: Vital Signs: Temperature 98.2 degrees, pulse 50, respirations 16, blood pressure 137/50. HEENT: Pupils are equal round. Lungs: Clear in all lung prather. Cardiovascular: Regular rhythm and rate without murmur or S3. Abdomen: Soft. Skin: Warm and dry. Urine output is 3200 mL. LABORATORY DATA: Unremarkable. CBC: White blood cell count is 6910, hematocrit is 30, platelet count 245,000. Sodium 145, potassium 4.0, chloride 104, BUN 71, creatinine 2.1, which has come down from 2.3 yesterday. Vitamin B12 was 434, TSH is 0.3, with a T4 of 2.04. Folate was 11. REVIEW OF ORDERS: She is on amiodarone 200 mg a day, Tenormin 25 mg daily, Neurontin 300 mg at bedtime, hydroxychloroquine 200 mg daily, normal saline 75 mL an hour, Zanaflex 4 mg p.o. at bedtime. ASSESSMENT AND PLAN: 1. Fall. Has a hematoma on the left leg, which seems to be improving. She did have a small laceration there. We are going to hold the Eliquis for a couple of days. 2. She has some bruised ribs on the right side. 3. History of paroxysmal atrial fibrillation. Rate is controlled. She is on amiodarone and atenolol. 4. Hypertension. Blood pressure well controlled. 5. Rheumatoid arthritis. Aware. We are going to try physical therapy to see if we can walk. If she is able to get around, hopefully he can go home. If not, we may need to pursue rehab. Note that renal function seems to be improving. I suspect this is predominantly prerenal. Continue to watch the creatinine. cc: Andrew Howell MD
[2019-03-12] MEDS: TENORMIN PO SCH (09:22)
[2019-03-12] MEDS: CORDARONE PO SCH ×2 (09:22→11:58)
[2019-03-12] MEDS: KLOR-CON PO SCH (09:23)
[2019-03-12] MEDS: PLAQUENIL PO SCH (09:25)
[2019-03-12] MEDS: TYLENOL PO PRN (15:23)
[2019-03-12] MEDS: NEURONTIN PO SCH (21:55)
[2019-03-12] MEDS: ZANAFLEX PO SCH (21:56)
[2019-03-13] MEDS: TYLENOL PO PRN ×3 (00:47→13:34)
[2019-03-13 06:31] LABS: CREATININE 1.7 mg/dL (0.5-0.9); POTASSIUM 3.8 mmol/L (3.5-5.1)
[2019-03-13] MEDS: TENORMIN PO SCH (09:21)
[2019-03-13] MEDS: CORDARONE PO SCH (09:21)
[2019-03-13] MEDS: PLAQUENIL PO SCH (09:21)
[2019-03-13] MEDS: KLOR-CON PO SCH (09:21)
[2019-03-13] MEDS: NS 1,000 ML IV SCH (09:28)
[2019-03-13] MEDS: TORADOL IV SCH ×2 (16:22→21:24)
--- NOTE | 2019-03-13 16:49 | PROGRESS NOTE ---
DATE: 03/13/2019 SUBJECTIVE: The patient reports feeling fine. Denies any fever or chills. OBJECTIVE: Vital Signs: Temperature 98.6 degrees, heart rate 55, respiratory 14, blood pressure 148/42, O2 saturation 97% on room air. General: This is a chronically ill-appearing 84-year-old female lying in bed, in no acute distress. Cardiovascular: S1, S2 heard. No murmurs, gallops, or rubs. Regular rate and rhythm. Respiratory: Clear bilaterally to auscultation. No work of breathing or using accessory muscles. Abdomen: Soft, nontender to palpation. Bowel sounds present. No organomegaly. Extremities: No clubbing, cyanosis, or edema. Peripheral pulses present in both legs. Neurological: The patient is alert oriented x3. Moves 4 extremities. LABORATORY DATA: Reviewed. ASSESSMENT AND PLAN: 1. Fall. The patient has hematoma in the left leg that is improving. We have held Eliquis to let her heal. 2. History of paroxysmal atrial fibrillation. Rate is well controlled. We will continue with same management. 3. Hypertension. Blood pressure is well controlled. We will continue with same management. 4. Rheumatoid arthritis, aware. Will continue home medication. 5. Physical deconditioning. We have consulted PT. 6. Disposition. The patient and daughter, who is at bedside, report that she is very weak, so they prefer to send her to rehab facility, so we have consulted our social service liaison. We will go from there. cc: Bryson Andrew MD
[2019-03-13] MEDS ORDERED: TYLENOL PO SCH (19:00)
[2019-03-13] MEDS: NEURONTIN PO SCH (21:23)
[2019-03-13] MEDS: ZANAFLEX PO SCH (21:23)
[2019-03-14] MEDS: NS 1,000 ML IV SCH ×2 (00:35→14:18)
[2019-03-14] MEDS: TYLENOL PO PRN (00:43)
[2019-03-14] MEDS: TORADOL IV SCH ×2 (03:27→11:11)
[2019-03-14 05:43] LABS: BASO# 0.01 X1000 (0.0-0.2); BASO% 0.2 % (0.0-0.8); EOS# 0.25 X1000 (0.0-0.7); EOS% 4.8 % (0.0-10.0); HEMATOCRIT 27.9 % (37.0-47.0); HEMOGLOBIN 8.7 g/dL (12.0-16.0); LYMPH# 1.05 X1000 (1.2-3.4); LYMPH% 20.1 % (20.5-51.1); MCH 29.6 PG (27-31); MCHC 31.2 g/dL (33-37); MCV 94.9 FL (81-99); MONO# 0.74 X1000 (0.11-0.59); MONO% 14.1 % (1.7-9.3); MPV 10.6 FL (7.4-10.4); NEUT# 3.18 X1000 (1.4-6.5); NEUT% 60.8 % (42.2-75.2); PLT 214 X1000 (130-400); RBC 2.94 XMIL (4.2-5.4); WBC 5.23 X1000 (4.8-10.8)
[2019-03-14 06:37] LABS: CALCIUM 9.5 mg/dL (8.8-10.2); CREATININE 1.8 mg/dL (0.5-0.9); POTASSIUM 5.1 mmol/L (3.5-5.1)
[2019-03-14] MEDS: KLOR-CON PO SCH (11:11)
[2019-03-14] MEDS: CORDARONE PO SCH (11:11)
[2019-03-14] MEDS: PLAQUENIL PO SCH (11:11)
[2019-03-14] MEDS: TENORMIN PO SCH ×2 (11:11→11:12)
--- NOTE | 2019-03-14 12:45 | PROGRESS NOTE ---
DATE: 03/14/2019 SUBJECTIVE: The patient reports feeling fine. There is less pain in the left leg. OBJECTIVE: Vital Signs: Temperature 97.8 degrees, heart rate 55, respiratory rate 17, blood pressure 103/56, O2 saturation 96% on room air. General Examination: This is a chronically ill- appearing 84-year-old female, lying in bed, in no acute distress. Cardiovascular: S1, S2 heard. No murmurs, gallops, or rubs. Regular rate and rhythm. Respiratory: Clear bilaterally to auscultation. No work of breathing. Not using accessory muscles. Abdomen: Soft. Nontender to palpation. Bowel sounds present. No organomegaly. Extremities: No clubbing, cyanosis, or edema. Peripheral pulses present in both legs. Neurological: Patient is alert and oriented x3. Moves 4 extremities. LABORATORY DATA: Reviewed. ASSESSMENT AND PLAN: 1. Status post mechanical fall. Patient has a hematoma in the left leg that is getting better. We have held Eliquis to let her heal that wound. 2. History of paroxysmal atrial fibrillation. Rate is well controlled. Patient is not experiencing any chest pain or any chest pressure or palpitation. We will continue to monitor. 3. Hypertension. Blood pressure is actually well controlled with the medication that she is receiving so we are not going to make any changes. 4. Rheumatoid arthritis. Aware. 5. Physical deconditioning. PT is on board and working with this patient. DISPOSITION: At this point, family wanted for this patient to be sent to rehabilitation facility. At this point, waiting for a adoption social worker to get a rehabilitation bed for this patient. She is medically stable. cc: Bryson Andrew MD
[2019-03-14] MEDS ORDERED: IMODIUM PO ONE (14:25)
[2019-03-14] MEDS: ZANAFLEX PO SCH (19:58)
[2019-03-14] MEDS: NEURONTIN PO SCH (19:58)
[2019-03-15] MEDS: ZANAFLEX PO SCH ×2 (00:37→21:48)
[2019-03-15] MEDS: NEURONTIN PO SCH ×2 (00:37→21:48)
[2019-03-15 06:36] LABS: BASO# 0.02 X1000 (0.0-0.2); BASO% 0.2 % (0.0-0.8); EOS# 0.33 X1000 (0.0-0.7); EOS% 3.7 % (0.0-10.0); HEMATOCRIT 28.4 % (37.0-47.0); HEMOGLOBIN 9.1 g/dL (12.0-16.0); IMM GRAN# 0.02 X1000 (0.0-0.04); IMM GRAN% 0.2 % (0.0-0.5); LYMPH# 1.13 X1000 (1.2-3.4); LYMPH% 12.7 % (20.5-51.1); MCH 30.2 PG (27-31); MCV 94.4 FL (81-99); MONO# 0.88 X1000 (0.11-0.59); MONO% 9.9 % (1.7-9.3); MPV 11.2 FL (7.4-10.4); NEUT# 6.54 X1000 (1.4-6.5); NEUT% 73.3 % (42.2-75.2); PLT 226 X1000 (130-400); RBC 3.01 XMIL (4.2-5.4); RDW 14.1 % (11.5-14.5); WBC 8.92 X1000 (4.8-10.8)
[2019-03-15 07:05] LABS: CALCIUM 9.5 mg/dL (8.8-10.2); CREATININE 2.3 mg/dL (0.5-0.9); POTASSIUM 5.7 mmol/L (3.5-5.1)
[2019-03-15] MEDS: TYLENOL PO PRN (07:53)
[2019-03-15] MEDS ORDERED: TENORMIN PO SCH (09:00)
[2019-03-15] MEDS: KLOR-CON PO SCH (11:00)
[2019-03-15] MEDS: PLAQUENIL PO SCH (11:00)
[2019-03-15] MEDS: TENORMIN PO SCH (11:01)
[2019-03-15] MEDS: CORDARONE PO SCH (11:01)
--- NOTE | 2019-03-15 13:14 | PROGRESS NOTE ---
DATE: 03/15/2019 SUBJECTIVE: The patient reports feeling okay with less pain in the left leg. Denies any other concerns. OBJECTIVE: Vital Signs: Temperature 99.1 degrees, heart rate 53 respiratory rate 16, blood pressure 110/47, and O2 saturation 94% on room air. General: This is a chronically ill-appearing 84-year-old female lying in bed in no acute distress. Cardiovascular: S1, S2 heard. No murmurs, gallops, or rubs. Regular rate and rhythm. Respiratory: Clear bilaterally to auscultation. No work of breathing or using accessory muscles. Abdomen: Soft. Nontender to palpation. Bowel sounds present. No organomegaly. Extremities: No clubbing, cyanosis, or edema. Peripheral pulses present in both legs. Neurological: Patient is alert and oriented x3. Moves 4 extremities. LABORATORY DATA: Reviewed. ASSESSMENT AND PLAN: 1. Status post mechanical fall. Patient has a hematoma in the left leg that is getting better. We have held Eliquis to let her heal that wound. I think upon discharge we can restart that medication. 2. History of paroxysmal atrial fibrillation. Rate is well controlled. No chest pain or palpitations noted. We will continue with same management. 3. Hypertension. Blood pressure is well controlled. We will continue with same medications. 4. Rheumatoid arthritis. Aware. 5. Physical deconditioning. Physical Therapy working with this patient. 6. Disposition. At this point, we are waiting for a rehab bed. cc: Bryson Andrew MD
[2019-03-15] MEDS: ZOSYN 3.375 GM in NS 50 ML IV SCH ×2 (15:25→21:48)
--- NOTE | 2019-03-16 01:38 | EKG Report ---
Test Performed on : 03/16/2019 01:00:41 AM Test Reason : Bradycardia Blood Pressure : / mmHG Vent. Rate : 043 BPM Atrial Rate : 043 BPM P-R Int : 260 ms QRS Dur : 110 ms QT Int : 520 ms P-R-T Axes : 068 -52 023 degrees QTc Int : 439 ms Marked sinus bradycardia. with sinus arrhythmia. with 1st degree AV block. Left axis deviation Incomplete right bundle branch block Abnormal ECG When compared with ECG of 05-FEB-2019 14:01, (Unconfirmed) GA interval has increased Confirmed by Amarjit AARON, Florin Patterson ([id number]) on 03/16/2019 9:01:50 AM
[2019-03-16 02:10] LABS: BASO# 0.01 X1000 (0.0-0.2); BASO% 0.1 % (0.0-0.8); EOS# 0.24 X1000 (0.0-0.7); EOS% 2.2 % (0.0-10.0); HEMATOCRIT 27.5 % (37.0-47.0); HEMOGLOBIN 8.8 g/dL (12.0-16.0); LYMPH# 1.56 X1000 (1.2-3.4); LYMPH% 14.5 % (20.5-51.1); MCH 29.9 PG (27-31); MCV 93.5 FL (81-99); MONO# 1.02 X1000 (0.11-0.59); MONO% 9.5 % (1.7-9.3); MPV 10.6 FL (7.4-10.4); NEUT# 7.93 X1000 (1.4-6.5); NEUT% 73.7 % (42.2-75.2); PLT 226 X1000 (130-400); RBC 2.94 XMIL (4.2-5.4); RDW 14.1 % (11.5-14.5); WBC 10.76 X1000 (4.8-10.8)
[2019-03-16 02:37] LABS: ALB/GLOB RATIO 0.9; ALBUMIN 2.8 g/dL (3.5-5.0); CALCIUM 9.6 mg/dL (8.8-10.2); TOTAL BILIRUBIN 0.35 mg/dL (0.20-1.00); TOTAL PROTEIN 5.8 g/dL (6.3-8.3)
[2019-03-16] MEDS ORDERED: HUMULIN R IV ONE (03:23)
[2019-03-16] MEDS ORDERED: D50W SYRINGE IV ONE (03:23)
[2019-03-16] MEDS ORDERED: ALBUTEROL 0.5% INH CONC FOR HYPERKALEMIA INH ONE (03:39)
[2019-03-16] MEDS ORDERED: ALBUTEROL 0.5% INH CONC FOR HYPERKALEMIA ONE (04:31)
[2019-03-16] MEDS: ZOSYN 3.375 GM in NS 50 ML IV SCH ×4 (04:33→21:01)
--- NOTE | 2019-03-16 06:46 | GENERAL SURGERY CONSULTATION ---
DATE: 03/15/2019 REASON FOR CONSULTATION: Left leg hematoma with drainage. HISTORY OF PRESENT ILLNESS: This is an 84-year-old female who has had some falls recently and has sustained a laceration and hematoma of her left lower leg. She has been admitted to the hospital since 03/11/2019, and I have been asked to evaluate her left leg. She reports that the pain in her left leg has improved since admission. She is able to stand on it and bear weight, but it is worse with bearing weight and direct pressure. No nausea, vomiting, fever or chills. PAST MEDICAL HISTORY: Diabetes, hypertension, osteoporosis, paroxysmal atrial fibrillation, gastroesophageal reflux disease, history of Thakkar's palsy, rheumatoid arthritis, lumbar spinal stenosis. PAST SURGICAL HISTORY: Right cataract surgery, bilateral knee replacement, lumbar spine surgery, L3-L4 laminectomy and bilateral olecranon nodule removed by Dr. Schulte. ALLERGIES: Sulfa, guaifenesin, povidone, iodine, and adhesive tape. SOCIAL HISTORY: Negative for tobacco or alcohol. She has multiple children. She is . FAMILY HISTORY: Reviewed and noncontributory. CURRENT MEDICATIONS: Amiodarone, atenolol, gabapentin, Plaquenil, Zosyn, Zanaflex. REVIEW OF SYSTEMS: Ten systems reviewed and negative except as noted above. PHYSICAL EXAMINATION: Vital Signs: Temperature 98.1 degrees, pulse 46, blood pressure 110/36, O2 saturation 100%. General: An elderly female who looks stated age, in no acute distress. HEENT: Normocephalic, atraumatic. Extraocular muscles intact. Pupils equal, round, reactive to light. Sclerae anicteric. Moist mucous membranes. Neck: Supple. No thyromegaly. Cardiovascular: Regular rate and rhythm. Respiratory: Bilateral breath sounds. No work of breathing. Gastrointestinal: Soft, nontender, nondistended. No organomegaly or mass. Extremities: No clubbing or cyanosis. She does have some edema of the left leg associated with a hematoma. There is an open wound on the left lower leg draining serosanguineous fluid. LABORATORY DATA: White blood cell count 8, hemoglobin 9.1. IMAGING: A left leg x-ray on 03/11/2019 showed soft tissue injury without acute osseous abnormality. ASSESSMENT AND PLAN: An 84-year-old female with left leg puncture, laceration and hematoma. I do not think this requires operative intervention. We will pack the wound as you were doing with Vashe moistened gauze and a Kerlix wrap, and I expect this to gradually resolve on its own. cc: Brenden Parson MD
[2019-03-16] MEDS ORDERED: KAYEXALATE PO ONE (07:32)
--- NOTE | 2019-03-16 07:41 | EKG Report ---
Test Performed on : 03/16/2019 07:35:39 AM Test Reason : Bradycardia Blood Pressure : / mmHG Vent. Rate : 067 BPM Atrial Rate : 067 BPM P-R Int : 226 ms QRS Dur : 116 ms QT Int : 450 ms P-R-T Axes : 052 -34 035 degrees QTc Int : 475 ms Sinus rhythm. with 1st degree AV block. Left axis deviation Abnormal ECG When compared with ECG of 16-MAR-2019 01:00, (Unconfirmed) Vent. rate has increased BY 24 BPM Confirmed by Amarjit AARON, Florin Patterson ([id number]) on 03/16/2019 9:10:10 AM
[2019-03-16 07:53] LABS: BASO# 0.02 X1000 (0.0-0.2); BASO% 0.2 % (0.0-0.8); EOS# 0.09 X1000 (0.0-0.7); EOS% 0.9 % (0.0-10.0); HEMATOCRIT 26.9 % (37.0-47.0); HEMOGLOBIN 8.7 g/dL (12.0-16.0); IMM GRAN# 0.03 X1000 (0.0-0.04); IMM GRAN% 0.3 % (0.0-0.5); LYMPH# 1.38 X1000 (1.2-3.4); LYMPH% 13.3 % (20.5-51.1); MCH 30.5 PG (27-31); MCHC 32.3 g/dL (33-37); MCV 94.4 FL (81-99); MONO# 1.44 X1000 (0.11-0.59); MONO% 13.8 % (1.7-9.3); MPV 10.7 FL (7.4-10.4); NEUT# 7.45 X1000 (1.4-6.5); NEUT% 71.5 % (42.2-75.2); PLT 221 X1000 (130-400); RBC 2.85 XMIL (4.2-5.4); RDW 14.3 % (11.5-14.5); WBC 10.41 X1000 (4.8-10.8)
[2019-03-16 08:11] LABS: CALCIUM 9.8 mg/dL (8.8-10.2); CREATININE 2.2 mg/dL (0.5-0.9); POTASSIUM 4.6 mmol/L (3.5-5.1)
[2019-03-16] MEDS: PLAQUENIL PO SCH (09:08)
--- NOTE | 2019-03-16 10:30 | PROGRESS NOTE ---
DATE: 03/16/2019 At approximately 0045 on 03/16/2019, a critical assistance team was called due to the patient's heart rate was noted by telemetry to have dropped into the 30s. They also reported that she had a 4 second pause as well. Upon arriving to the patient's room, the patient stated that she felt fine. Her vital signs were heart rate was 39, respirations 18, blood pressure was 99/60 with a MAP of 68, and oxygen saturation was 99% on room air. The patient was denying any dizziness, feelings of being lightheaded. She denied any chest pain or shortness of breath. Upon further evaluation of the patient's chart, it looks as though she was admitted for a mechanical fall and a hematoma to her left leg. She does have a history of paroxysmal atrial fibrillation, and takes amiodarone 200 mg p.o. daily and atenolol 12.5 mg p.o. daily. She also takes potassium chloride 40 mEq p.o. daily as well. The patient normally does take torsemide and metolazone though this has been held since she was admitted to the hospital. It looks as though right now the patient also does have an acute kidney injury, with her chemistries on the morning of March 15 showing a BUN of 68, a creatinine of 2.3 with a GFR of 24. Also, noted is her potassium was 5.7 this morning. Upon looking back and reviewing the patient's medication administration record, she did receive 40 mEq of potassium later on in the morning of March 15. Also upon further review, the patient's heart rate during this admission and in a previous admission in December as well it was documented on the EKG is well that she had bradycardia with a first-degree heart block. Her heart rate had been ranging in the mid high 40s into the 50s. We did obtain an EKG which did show marked sinus bradycardia with sinus arrhythmia and a first-degree AV block. We also ordered stat labs of CBC, CMP, magnesium, troponin and CK. The patient's laboratory results did reveal that she had hyperkalemia with a potassium of 6. She does have an acute kidney injury with a BUN of 71, creatinine of 2. Magnesium and calcium were within normal limits and CK and troponin were negative. Though given the patient's bradycardia, we did go ahead and treat her for her hyperkalemia with 8 units of IV regular insulin, 1 amp of D50, and an hyperkalemic albuterol nebulizer treatment. Since that time the patient's heart rate has improved and is now in the 70s. We are going to repeat her chemistries including a potassium at approximately 6:45 this morning on March 16. At this time, the patient's bradycardia could be multifactorial. She has been bradycardic during this visit and on previous visits and she does take medications of amiodarone and atenolol. These have been held at this time though these dosages may need to be adjusted, especially since she has an acute kidney injury at this time as well. We did place a consult with Cardiology, and will await their evaluation and further recommendations for management as well. Also her worsening bradycardia this morning could have been also related to her acute kidney injury and hyperkalemia. As previously mentioned above, we have treated her hyperkalemia. We are going to recheck her labs at 2 hours after treatment of her hyperkalemia. The patient has been moved from the medical floor to the PVC unit for closer monitoring. We will continue to follow her condition closely. Further orders and recommendations pending hospital course, diagnostic studies, and physician evaluations. Dictated by MIRNA Vazquez for Layla Wild MD cc: Layla Wild MD MTDD
[2019-03-16] MEDS ORDERED: ALBUMIN 25% IV ONE (10:42)
--- NOTE | 2019-03-16 11:58 | PROGRESS NOTE ---
DATE: 03/16/2019 SUBJECTIVE: The patient according to nursing staff had had an episode of heart rate has been in the high 20s and 30s. Apparently, the patient was a little bit dizzy. OBJECTIVE: Vitals: Temperature 98.0, heart rate 68, respiratory rate 14, blood pressure 107/47, O2 saturation 100% on 2 L nasal cannula. General Examination: This is a chronically ill- appearing 84-year-old -[place] female lying in bed, in no acute distress. Cardiovascular Exam: S1 and S2 heard. No murmurs, gallops, or rubs. Regular rate and rhythm. Respiratory Examination: Clear bilaterally to auscultation. No work of breathing or using accessory muscles. Abdomen: Soft, nontender to palpation. Bowel sounds present. No organomegaly. Extremities: No clubbing, no cyanosis. The patient has edema on the left leg associated with hematoma, no drainage coming out, just some serosanguineous fluid not covered by dressing. Peripheral pulses present in both legs. Neurological Examination: The patient is alert and oriented x3. Moves 4 extremities. LABORATORY DATA: White cell count 10.41, hemoglobin 8.7, hematocrit 27.5, platelet 226. The BMP from this morning shows sodium 134, potassium 4.6, with creatinine 2.2. ASSESSMENT AND PLAN: 1. Symptomatic bradycardia. The patient has had this problem just sent yesterday. The patient continues with Tenormin, amiodarone. So both medications have been held and we have consulted Cardiology to readjust those medications. 2. Hyperkalemia that has been treated. The potassium is normal today. Of course, we are going to stop potassium supplementation at this point. 3. History of paroxysmal atrial fibrillation. That is why this patient has been on Tenormin and amiodarone. At this point, we have held those medications and will continue to monitor. 4. Hypertension. Blood pressure is under control. Continue with same management. 5. Rheumatoid arthritis. Aware. 6. Physical deconditioning. Physical therapy is working with this patient. 7. Disposition. Awaiting recommendations from Cardiology. I think we will keep this patient over the weekend and on Tuesday if everything is stable we will let her go to rehab facility. Actually, we do have a bed for her already. cc: Bryson Andrew MD
[2019-03-16] MEDS ORDERED: LOVENOX SUBQ SCH (12:00)
[2019-03-16 17:01] LABS: CALCIUM 10.1 mg/dL (8.8-10.2); POTASSIUM 4.8 mmol/L (3.5-5.1)
--- NOTE | 2019-03-16 19:24 | CARDIOLOGY CONSULTATION ---
DATE: 03/16/2019 CHIEF COMPLAINT ON PRESENTATION: Apparent fall. HISTORY OF PRESENT ILLNESS: Ms. Longoria is a pleasant 84-year-old black female with a history of paroxysmal atrial fibrillation previously seeing Dr. Maynard in clinic. She presented for evaluation of a fall in which she missed her walker and apparently hit her left lower leg resulting in significant laceration as well as a hematoma. She is on Eliquis at her home. In addition, she was noted to have an elevation in her creatinine. She has not had any chest pain. She has had no orthopnea. She denies any episodes of syncope or lightheadedness. PAST MEDICAL HISTORY: 1. Significant for paroxysmal atrial fibrillation maintained on atenolol, amiodarone and Eliquis. 2. Mitral regurgitation status post mitral clip in December 2018. 3. Aortic stenosis with moderate aortic stenosis. 4. Nonischemic cardiomyopathy with ejection fractions in the 40 to 45 percent range. 5. Diastolic failure. 6. Hypertension. 7. Hypothyroidism. 8. Rheumatoid arthritis. 9. Chronic kidney disease. SOCIAL HISTORY: No alcohol or tobacco use. Lives in [place] with her son and grand child. FAMILY HISTORY: Hypertension. Father may have of a heart attack around 70, mother at 89 from a stroke. REVIEW OF SYSTEMS: A 10 system review of systems is negative except for those mentioned HPI. PHYSICAL EXAMINATION: Afebrile. Heart rate is 68, blood pressure 107/47.General: She is in no acute distress. HEENT: Oropharynx is moist. Poor dentition. Eye examination shows pink conjunctivae, white sclerae. Neck: Shows no obvious thyromegaly or thyroid tenderness. Cardiovascular: She sounds to be in a regular rate and rhythm. She has no obvious murmurs. Her current monitor shows sinus. She has minimal bilateral lower extremity edema and warm and well perfused extremities. Her chest exam sounds to have mild bilateral basilar rales. No increased work of breathing. Abdomen: Soft, nontender. She has no obvious organomegaly. Skin: Notable for a laceration on the left leg that appears to be sutured and clean and dry. She has a bandaged wound on her left lower extremity which we did not remove the bandage secondary to wound care recently dressing it. Neurological: She seems to be moving all extremities well. She has no lateralizing deficits. Psychiatric: She is alert, oriented, pleasant. Normal mood and affect. PERTINENT DATA: Her EKG shows sinus rhythm, 43 beats per minute occurring this morning at 1 a.m. She has a first-degree AV block on that as well. Her next EKG on the at 7:35 shows sinus mechanism, first-degree AV block. LABORATORY DATA: She has a white count of 10.7, hematocrit 27, platelet count 226,000. Sodium 133, potassium this morning was 4.6, earlier this morning it was 6, her BUN this morning was 71 with a creatinine of 2, her albumin is 2.8. She had a TSH and free T4 of 0.3 and 2.04 occurring on the . ASSESSMENT: Ms. Longoria is an 84-year-old female with recent mechanical falls who had an episode of bradycardia and a pause. PLAN: Considering the current issues going on including her hyperkalemia, renal failure as well as possible infection in the lower extremity as evidenced by gram-negative rods, we will not pursue permanent pacemaker. In addition, this may not fix the reason for falls as most of these seem to be mechanical. The atenolol has been stopped. We will overall plan on reducing the amiodarone to 100 mg daily. I have stopped the Eliquis and placed her on 1 mg/kg daily of Lovenox as evidenced by her GFR of 29. She may ultimately need to discontinue the Eliquis altogether if we do not resolve the falls. cc: Mauro Cook MD
[2019-03-16] MEDS: NEURONTIN PO SCH (20:50)
[2019-03-16] MEDS: ZANAFLEX PO SCH (20:50)
[2019-03-17] MEDS: ZOSYN 3.375 GM in NS 50 ML IV SCH ×2 (03:19→09:30)
[2019-03-17 06:35] LABS: BASO# 0.02 X1000 (0.0-0.2); BASO% 0.3 % (0.0-0.8); EOS# 0.27 X1000 (0.0-0.7); EOS% 3.6 % (0.0-10.0); HEMATOCRIT 24.4 % (37.0-47.0); HEMOGLOBIN 7.8 g/dL (12.0-16.0); IMM GRAN# 0.02 X1000 (0.0-0.04); IMM GRAN% 0.3 % (0.0-0.5); LYMPH# 0.88 X1000 (1.2-3.4); LYMPH% 11.7 % (20.5-51.1); MCH 29.9 PG (27-31); MCV 93.5 FL (81-99); MONO# 0.84 X1000 (0.11-0.59); MONO% 11.1 % (1.7-9.3); MPV 10.6 FL (7.4-10.4); NEUT# 5.52 X1000 (1.4-6.5); PLT 216 X1000 (130-400); RBC 2.61 XMIL (4.2-5.4); RDW 14.1 % (11.5-14.5); WBC 7.55 X1000 (4.8-10.8)
[2019-03-17 06:43] LABS: CALCIUM 10.3 mg/dL (8.8-10.2); CREATININE 1.7 mg/dL (0.5-0.9); POTASSIUM 4.7 mmol/L (3.5-5.1)
--- NOTE | 2019-03-17 08:41 | EKG Report ---
Test Performed on : 03/17/2019 06:27:34 AM Test Reason : bradycardia Blood Pressure : / mmHG Vent. Rate : 055 BPM Atrial Rate : 055 BPM P-R Int : 246 ms QRS Dur : 116 ms QT Int : 484 ms P-R-T Axes : 052 -35 011 degrees QTc Int : 463 ms Sinus bradycardia. with 1st degree AV block. Left axis deviation Abnormal ECG When compared with ECG of 16-MAR-2019 07:35, No significant change was found Confirmed by Amarjit AARON, Florin Patterson ([id number]) on 03/18/2019 8:25:52 AM
[2019-03-17] MEDS ORDERED: CORDARONE PO SCH (09:00)
[2019-03-17] MEDS: PLAQUENIL PO SCH (09:30)
[2019-03-17] MEDS: LIDODERM TOP SCH (11:00)
[2019-03-17] MEDS: KEFZOL 1 GM/D5W 1 GM/50 ML IVPB IV SCH ×2 (11:02→20:49)
--- NOTE | 2019-03-17 14:09 | PROGRESS NOTE ---
DATE: 03/17/2019 INTERVAL HISTORY: Ms. Longoria did have a drop in her hematocrit. She denies any chest pain or shortness of breath. Her pulse has been consistently in the 50s. She denies any dizziness. We discussed about exam findings. The patient's family is at bedside. We discussed about changing antibiotics. VITALS: Currently, temperature of 98.5 degrees, pulse 57, respiratory 6, blood pressure 140/56, saturating 100% on 2 L nasal cannula. PHYSICAL EXAMINATION: General: Does not appear in acute distress. Oral cavity: Moist. Respiratory: She does have decreased air entry bilateral infrascapular region with inspiratory crackles. Her respirations are shallow. Cardiovascular: S1, S2 normal. Regular. Bradycardic. No murmur, rub, or gallop. Abdomen: Soft. She has right-sided flank tenderness. Active bowel sound. Extremities: She has bilateral lower extremity edema. : She denies noticing any blood in the stool. LABS: Suggestive of normocytic anemia. She does have hyperchloremia, improving acute kidney injury and hypercalcemia. MICROBIOLOGY: Wound culture was growing Proteus mirabilis, which is sensitive to cefazolin. X-RAYS: No new imaging. ASSESSMENT AND PLAN: 1. Likely symptomatic bradycardia duet to medications on admission. Conservative management as per Cardiology. Currently to monitor on the telemetry unit. No urgent need for pacemaker. Continue to hold amiodarone and atenolol. 5. History of paroxysmal atrial fibrillation, currently having sinus bradycardia. Continue to hold Eliquis because of worsening anemia, atenolol and amiodarone for bradycardia. Cardiology on board. 2. Acute kidney injury on chronic kidney disease stage III-A, status post intravenous albumin. I encouraged her to have oral intake. I will monitor the frequent basic metabolic panel. Her hyperkalemia has resolved, likely due to intravascular volume depletion, which could have cause acute kidney injury. 3. History of multiple mechanical falls and left sheen hematoma with wound infected with Proteus. Continue to hold all anticoagulants. Change antibiotics to intravenous cefazolin. In the future, I may consider surgical evaluation. Currently wound is healing well. 4. Normocytic anemia with drop in hemoglobin. No urgent need for transfusion. Her Eliquis was held on admission. I will hold her Lovenox as well considering drop in her hemoglobin. 6. Disposition: Plan is for patient to be discharged to rehabilitation early next week once medically stable. I will await stabilization of hemoglobin and cardiovascular regimen. Plan of care discussed with the patient and her daughter at bedside. All of their questions have been answered. cc: Angel Hurst MD MTDD
--- NOTE | 2019-03-17 14:58 | CARDIOLOGY PROGRESS NOTE ---
DATE: 03/17/2019 CHIEF COMPLAINT: Irregular heartbeat, shortness of breath, chest discomfort. SUBJECTIVE: Mrs. Longoria is feeling better today. They have dressed her leg wound along with a patch they gave her to the chest cage makes her feel better. She is sitting upright eating her lunch. She has really no discomfort to speak of. They did an EKG this morning that shows sinus bradycardia with first-degree AV block, rate 55 beats per minute. No ischemic changes. Her blood work today, BUN is better at 54, creatinine is 1.7. Hemoglobin has dropped to 7.8. White cell count is 7550. Daughter is at the bedside. She believes that her mother looks better. PHYSICAL EXAMINATION: Vital signs: Temperature 98.6, pulse 61, respirations 16, blood pressure 144/52. General: She is awake, alert, in no distress. HEENT: Unremarkable. Chest: Sounds clear to auscultation and percussion. Heart: Sounds are regular and rhythmic. I do not hear a gallop or murmur. Abdomen: Nontender. Extremities: Showed no edema. Neurologic exam: Follows commands, moves all 4 extremities. BLOOD WORK: Has been described. IMPRESSION: 1. Patient who presented with question of cellulitis and frequent falls. 2. History of paroxysmal atrial fibrillation in sinus rhythm. 3. History of mitral valve regurgitation status post mitral valve clip. Aortic stenosis of moderate degree. 4. Nonischemic cardiomyopathy stable. 5. Hypertension. RECOMMENDATIONS: At this time, we will suggest to continue to monitor. She had some bradycardia and a pause noted on telemetry. At this time, I do not believe that we need to make any additional changes other than what Dr. Cook recommended yesterday, which was to keep her on Lovenox. We will see how she does. cc: Abdias Sun MD
[2019-03-17] MEDS: NEURONTIN PO SCH (20:48)
[2019-03-17] MEDS: ZANAFLEX PO SCH (20:49)
[2019-03-18] MEDS: KEFZOL 1 GM/D5W 1 GM/50 ML IVPB IV SCH ×3 (06:33→23:08)
[2019-03-18 07:36] LABS: BASO# 0.02 X1000 (0.0-0.2); BASO% 0.3 % (0.0-0.8); EOS# 0.32 X1000 (0.0-0.7); EOS% 5.2 % (0.0-10.0); HEMATOCRIT 25.7 % (37.0-47.0); HEMOGLOBIN 8.1 g/dL (12.0-16.0); IMM GRAN# 0.03 X1000 (0.0-0.04); IMM GRAN% 0.5 % (0.0-0.5); LYMPH# 1.15 X1000 (1.2-3.4); LYMPH% 18.8 % (20.5-51.1); MCH 29.7 PG (27-31); MCHC 31.5 g/dL (33-37); MCV 94.1 FL (81-99); MONO# 0.74 X1000 (0.11-0.59); MONO% 12.1 % (1.7-9.3); MPV 10.3 FL (7.4-10.4); NEUT# 3.85 X1000 (1.4-6.5); NEUT% 63.1 % (42.2-75.2); PLT 222 X1000 (130-400); RBC 2.73 XMIL (4.2-5.4); RDW 13.9 % (11.5-14.5); WBC 6.11 X1000 (4.8-10.8)
[2019-03-18 08:03] LABS: CALCIUM 10.7 mg/dL (8.8-10.2); CREATININE 1.3 mg/dL (0.5-0.9); POTASSIUM 4.1 mmol/L (3.5-5.1)
[2019-03-18] MEDS: PLAQUENIL PO SCH (12:46)
[2019-03-18] MEDS: LIDODERM TOP SCH (12:46)
--- NOTE | 2019-03-18 13:54 | PROGRESS NOTE ---
DATE: 03/18/2019 Ms. Longoria had trauma to her left lower extremity which included hematoma. She has an open wound lateral aspect of her mid left leg which appears to be clean and starting to granulate. She also has another wound which was closed with stitches and that seems to be healing well. The plan is to get her to rehab probably tomorrow and she will need to continue local wound care which I think would be damp to dry saline dressings. cc: Mirtha Gilbert MD
[2019-03-18] MEDS ORDERED: DEMADEX PO SCH (17:45)
--- NOTE | 2019-03-18 18:51 | PROGRESS NOTE ---
DATE: 03/18/2019 INTERVAL HISTORY: No acute events overnight. Ms. Longoria has been feeling fine. She has not noticed any blood in the stool. I discussed with her about performing endoscopy, colonoscopy if she continues to have a drop in her hemoglobin. I also discussed with her about resuming some of her home diuretics as well as blood thinners. Multiple family members are at bedside. Their questions have been answered. The patient denies any chest pain or shortness of breath. She denies nausea, vomiting or abdominal pain. Her ribcage pain is well controlled. Currently vitals temperature 98.9 degrees, pulse 62, respiratory 20, blood pressure 159/44, saturating 100% room air. PHYSICAL EXAMINATION: General: Does not appear in any acute distress. Oral cavity is moist. Air entry decreased in infrascapular region with inspiratory crackles. S1, S2 normal. No murmur, rub or gallop. Regular. She has right-sided flank tenderness which has diminished. Active bowel sounds. Bilateral lower extremity edema. LABS: Suggestive of normocytic anemia with stable hemoglobin. She does have hyperchloremia, improving acute kidney injury. Microbiology, no new data. ASSESSMENT AND PLAN: 1. Bradycardia due to use of beta blockers and amiodarone with heart rate as low as in 30s which now resolved after holding beta blockers. Continue to monitor in telemetry unit. I will continue amiodarone at a lower dose. 2. Paroxysmal atrial fibrillation currently in normal sinus rhythm. I will resume Eliquis at a lower dose considering her hemoglobin is stable and she has had fluctuating kidney function and continue amiodarone as well. 3. Acute kidney injury on chronic kidney disease stage 3A likely because of lisinopril and diuretic use status post intravenous albumin. I encouraged her to have oral intake. Considering her crackles on examination I would resume lower dose of torsemide starting today. 4. Multiple mechanical falls. Left hopkins hematoma with Proteus wound infection. Right now her wound is not oozing, I will continue intravenous cefazolin and will discharge her on oral Keflex. Surgical team has recommended wet-to-dry dressing. Normocytic anemia with drop in her hemoglobin. No signs of active bleeding. I will monitor her CBC and have outpatient GI evaluation as necessary. 5. Disposition. Patient appears to be hemodynamically stable. If she continues to do well without any more bradycardic episode my plan will be to discharge her to rehab tomorrow. Plan of care discussed with her and her family members. All of the questions have been answered. cc: Angel Hurst MD
[2019-03-18] MEDS: ELIQUIS PO SCH (23:09)
[2019-03-18] MEDS: ZANAFLEX PO SCH (23:09)
[2019-03-18] MEDS: NEURONTIN PO SCH (23:09)
[2019-03-19] MEDS: KEFZOL 1 GM/D5W 1 GM/50 ML IVPB IV SCH ×2 (03:45→13:41)
[2019-03-19] MEDS: PLAQUENIL PO SCH (09:28)
[2019-03-19] MEDS: ELIQUIS PO SCH (09:28)
[2019-03-19] MEDS: TYLENOL PO PRN (09:29)
[2019-03-19 12:23] VITALS: BP 179/83
[2019-03-19] MEDS ORDERED: PRINIVIL PO SCH (12:45)
[2019-03-19] MEDS: LIDODERM TOP SCH (13:40)
[2019-03-19] MEDS ORDERED: KEFLEX PO SCH (14:00)
--- NOTE | 2019-03-19 14:06 | DISCHARGE SUMMARY ---
ADMISSION DATE: 03/11/2019 DISCHARGE DATE: 03/19/2019 DISCHARGE DISPOSITION[facility] To [facility]. DISCHARGE CONDITION: Hemodynamically stable. She denies any chest pain. She is not short of breath on minimal physical exertion. Her left leg wound is healing better. Her kidney function has improved. DISCHARGE DIAGNOSES: 1. Sinus Bradycardia with sinus pauses due to use of beta blockers. 2. Paroxysmal atrial fibrillation. 3. Acute kidney injury on chronic kidney disease stage IIIA because of lisinopril and diuretic use. 4. Multiple mechanical falls, likely related to general debility and old age. 5. Left hopkins hematoma and wound requiring sutures as well as Proteus infection at local wound. OTHER DIAGNOSES: 1. History of rheumatoid arthritis. 2. History of osteoporosis. 3. History of gastroesophageal reflux disease. 4. History of lumbar spinal stenosis and Thakkar's palsy. 5. Essential hypertension. 6. Peripheral neuropathy. 7. CKD stage 3 DISCHARGE MEDICATIONS: Gabapentin 300 mg at nighttime, hydroxychloroquine 200 mg daily, lisinopril 10 mg daily, tizanidine 4 mg at nighttime as needed for insomnia, Keflex 250 mg every 6 hours for 5 days for the leg wound infection, amiodarone 100 mg daily, torsemide 20 mg b.i.d., apixaban 2.5 mg b.i.d., lidocaine 5% patch over the right flank pain site, acetaminophen 1000 mg every 8 hours as needed for pain. VITALS: At the time of discharge, temperature of 97.9 degrees, pulse 79, respiratory rate 20, blood pressure 180/83, saturating 98% on 2 L nasal cannula. PHYSICAL EXAMINATION: She does not appear in any acute distress. Oral cavity is moist. Inspiratory crackles at bilateral infrascapular region. However, she is not complaining of shortness of breath. Otherwise, air entry bilaterally equal. No wheeze or rhonchi. Cardiovascular: S1, S2 normal. Irregularly irregular. No murmur, rub, or gallop except a mild systolic murmur affecting base of the heart. Abdomen: Soft, nontender. Bilateral lower extremity edema. She has a left hopkins hematoma and open wound which one of the wounds is sutured and the open wound is dressed. A wet-to-dry dressing is recommended daily. SIGNIFICANT LABS DURING HOSPITAL ADMISSION AND DISCHARGE: WBC 6.1, hemoglobin 8.1, platelet count 222,000. BUN 37 and creatinine 1.3 which improved from BUN of 76 and creatinine of 2.3 on admission. Magnesium is 2. SIGNIFICANT MICROBIOLOGY DURING HOSPITAL ADMISSION: Left leg wound was growing Proteus mirabilis, sensitive to first generation cephalosporin. SIGNIFICANT IMAGING DURING HOSPITAL ADMISSION: Chest x-ray on admission had no definitive acute pathology. Head and cervical spine CT had no evidence of acute intracranial pathology. There was multilevel degenerative arthropathy without any fracture of C-spine. Lower extremity x-ray had soft tissue injury without any osseous abnormality affecting left lower extremity. Foot x-ray had advanced degenerative changes without evidence of acute osseous abnormality. HOSPITAL COURSE SUMMARY: Ms. Longoria is an 84-year-old, lady with a past medical history of paroxysmal atrial fibrillation, mitral regurgitation, and severe pulmonary hypertension with cor pulmonale and right ventricular failure pathology who came in on 03/11/2019 with chief complaints of recurrent mechanical falls. She was found to have a leg hematoma and laceration. She was also found to have acute kidney injury so she was advised to be admitted for further management. Her diuretics and VINNY inhibitors were held and she was started on antibiotics for leg wound infection. While inside the hospital, she had developed episodes of bradycardia so she was kept on the telemetry monitoring. Her kidney function improved after holding diuretics and adjusting its dose. At the time of discharge, she will be resumed on her home diuretic regimen except metolazone and lisinopril since her lower extremity swelling was increasing and she was advised to get repeat BMP within 4 days. She had developed episodes of sinus bradycardia with heart rate as low as 35 following which her atenolol was held and stopped. She was continued on lower dose of amiodarone. Also, considering her fluctuating kidney function, her apixaban dose was decreased for her history of paroxysmal atrial fibrillation. On EKG, however, she did have sinus bradycardia. She was treated with wet-to-dry dressing for her left lower extremity wound and no surgical intervention was planned by the surgical team. She will be discharged on oral Keflex for local Proteus wound infection. At the time of discharge, she was advised to engage in physical therapy, occupational therapy, have outpatient cardiology followup. Discussed about dosing adjustment in her Eliquis and diuretics. All of her questions were satisfactorily answered. More than 30 minutes were spent in discharging this patient. cc: Angel Hurst MD MTDD
--- NOTE | 2019-03-19 14:35 | GENERAL SURGERY PROGRESS NOTE ---
DATE: 03/19/2019 SUBJECTIVE: The patient has no new complaints. OBJECTIVE: She is afebrile. Vital signs are stable. General: She is awake, alert, and oriented x3. No acute distress. Extremities: The left leg was examined. There is a hematoma but it is stable and soft. The open wound is clean with serous drainage. ASSESSMENT AND PLAN: An 84-year-old female status post multiple falls with a left leg laceration and hematoma. The wounds are healing appropriately. Continue moist to dry saline dressings to the left leg open wound. cc: Brenden Parson MD
--- NOTE | 2019-03-19 19:13 | CARDIOLOGY PROGRESS NOTE ---
DATE: 03/19/2019 SUBJECTIVE: Ms. Longoria has no complaints today. No chest pain. Review of her telemetry has shown no further events of bradycardia. PHYSICAL EXAMINATION: Vital Signs: She is afebrile. Heart rate is 79, blood pressure is 179/83. General: She is in no acute distress. Cardiovascular: She sounds to be in a regular rate and rhythm. She has no obvious murmurs. Extremities: Warm and well-perfused extremities. Chest: Clear bilaterally. She has no increased work of breathing. Abdomen: Soft, nontender. PERTINENT DATA: White count 6.1, and that was from yesterday. No new laboratories today. ASSESSMENT: Ms. Longoria is an 84-year-old female with atrial fibrillation, came in with some bradycardia. PLAN: Presently, she has not had any more pauses or significant bradycardic episodes since initial consultation. Lisinopril was reinitiated today. I agree with the reinitiation of the apixaban for now. Her dosing may be somewhat difficult given her age and kidney function. Currently, she is on the 2.5 b.i.d. dose. At this point, I do not have any acute recommendations. We will be following her up as an outpatient with an outpatient home heart monitor to assess for further episodes of bradycardia. The amiodarone will be continued at 100 mg daily. cc: Mauro Cook MD
== END 2019-03-19 18:00 | DRG 683 ==
LOC: SUPCPDRO → ED 11:00 → SUATTDRO 15:07 → INTOOBSV 15:07 → OBSVTOIN 15:07 → 4N 15:07 → 2N 03-16 01:25 → 3N 03-18 00:21
PROVIDERS: ATTEND Internal Medicine